=== PATIENT | male | born 1940 | race Caucasian/White ===

== ENCOUNTER → 2019-04-12 09:04 | Outpatient (CLI) | payer MEDICARE, SELFPAY ==
[2019-04-12 10:57] LABS: BUN Creatinine Ratio 18.2 (6-22); Blood Urea Nitrogen 20 mg/dL (9-20); Calcium 9.3 mg/dL (8.4-10.2); Carbon Dioxide 27 mmol/L (22-32); Chloride 105 mmol/L (98-107); Cholesterol 142 mg/dL (140-199); Estimated Glomerular Filt Rate > 60.0 mL/min (>60); Glucose 106 mg/dL (80-110); HDL Cholesterol 30 mg/dL (40-60); HEMOLYSIS < 15 (0-50); LDL Cholesterol Calculated 74 mg/dL (<100); Potassium 4.3 mmol/L (3.4-5.1); Sodium 142 mmol/L (137-145); Triglycerides 192 mg/dL (35-150)
[2019-04-12 11:28] LABS: Prostate Specific Antigen 6.54 ng/mL (0.10-4.00)
== END ==
PROVIDERS: PCP Internal Medicine; Visit Provider Internal Medicine
DX: E78.00 Pure hypercholesterolemia, unspecified (principal); N40.0 Benign prostatic hyperplasia without lower urinary tract symptoms
CPT/HCPCS: 36415; 80048; 80061; 84153

== ENCOUNTER 2019-12-09 09:27 | Emergency (ER) | payer MEDICARE, SELFPAY ==
[2019-12-09 09:30] VITALS: BP 171/72; PULSE 50; RESP 18; TEMP 36.9; O2SAT 95
[2019-12-09] MEDS: KETOROLAC 60 MG/2 ML VIAL 15 MG IM (09:50)
[2019-12-09] MEDS: CYCLOBENZAPRINE 10 MG TABLET PO (09:50)
[2019-12-09] MEDS: ACETAMINOPHEN 325 MG TABLET 650 MG PO (09:50)
[2019-12-09 10:21] VITALS: BP 121/62; PULSE 64; RESP 16; O2SAT 97
--- NOTE | 2019-12-09 10:48 | DI.CT.S_ITS ---
PROCEDURE: CT LUMBAR SPINE WO CON INDICATIONS: severe paralyzing pain in low back after lifting TECHNIQUE: Noncontrast 3 mm thick sections acquired from the T12 level to the sacrum. Sagittal and coronal reformats were constructed. For radiation dose reduction, the following was used: automated exposure control. COMPARISON: [facility], L-SPINE 2-3 VIEWS, 03/25/2016, 10:31. FINDINGS: Image quality: Excellent. Bones: There is normal bony alignment. No acute vertebral body compression fractures. No suspicious lytic or blastic bony lesions. Spine degenerative disc disease and facet arthropathy.Central spinal caliber is of normal overall caliber. Severe right L5-S1 neural foraminal narrowing with slight compression of the exiting right L5 nerve root. No pars defects. Soft tissues: No retroperitoneal masses or hematomas. Visualized aorta is normal in caliber. IMPRESSION: 1. No fracture. No acute osseous lesion. If symptoms and/or clinical suspicion for pathology persists, evaluation with MRI may be helpful for further assessment. 2. Multilevel degenerative disc disease. 3. Multilevel facet arthropathy. 4. Severe right L5-S1 neural foraminal narrowing with slight compression of the exiting right L5 nerve root. Dictated by: Marianne Millan MD, PhD on 12/09/2019 at 10:25 Approved by: Marianne Millan MD, PhD on 12/09/2019 at 10:28
--- NOTE | 2019-12-09 11:39 | ED.BACK ---
HPI - Back Pain/Injury General Chief Complaint: Back Pain/Injury Stated Complaint: lower back pain Time Seen by Provider: 12/09/19 10:37 Source: patient and family Limitations: no limitations History of Present Illness HPI Narrative: CC: Low back pain HPI: The patient is a 79-year-old male comes into the emergency department complaining of low back pain. He states that the pain at times is 8 to 9/10 and feels paralyzing as if he is going to collapse. This type of pain is fleeting and very short-lived. It all started Friday and Friday when he was lifting pieces of concrete. Five days ago. He has had some minimal relief from heat in ibuprofen. The pain is sharp when it occurs. It occurs with bending over and twisting. He has had no fall or other injury. 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 He denies any shooting pain down his legs any numbness or tingling or loss of sensation other than his normal idiopathic peripheral neuropathy. He has had no loss of sensation over his scrotum and perineum. There has been no incontinence of urine or stool and no obstruction. The patient denies a history of diabetes mellitus or COPD. He does not smoke cigarettes but drinks alcohol periodically. He denies any headache any recent fever chills or sweats. He has had no cough chest pain or difficulty in breathing. He has had no dizziness or lightheadedness. There has been no abdominal pain nausea vomiting diarrhea change in bowel habits or any urinary symptoms. Related Data Home Medications Medication Instructions Recorded Confirmed doxazosin 8 mg tablet 8 mg PO DAILY 03/06/18 12/09/19 omeprazole 20 mg capsule,delayed 20 mg PO DAILY 03/06/18 12/09/19 release lisinopril 5 mg PO DAILY 12/09/19 12/09/19 simvastatin 10 mg PO DAILY 12/09/19 Previous Rx's Medication Instructions Recorded cyclobenzaprine 10 mg PO TID PRN #15 tab 12/09/19 naproxen [Naprosyn] 500 mg PO BID PRN #20 tab 12/09/19 tramadol [Ultram] 50 mg PO Q6H PRN #12 tab 12/09/19 Allergies Allergy/AdvReac Type Severity Reaction Status Date / Time Sulfa (Sulfonamide Allergy Intermediate Rash Verified 12/09/19 09:37 Antibiotics) Review of Systems Review of Systems Narrative: The patient's review of systems were all negative except for those mentioned in the history of present illness. Patient History Social History Smoking Status: Never smoker Smoking Status: Never smoker alcohol intake frequency: 0-2 drinks per day Substance Use Type: does not use Exam Narrative Exam Narrative: PHYSICAL EXAM: CONSTITUTIONAL: Awake, Alert, Oriented, Coherent, Cooperative in NAD but in mild to moderate discomfort.. Does not appear toxic or ill. The patient is preferably standing leaning up against the counter. HEAD: AT/NC EENT: PERRL, FROM of eyes, no discharge, NECK: Supple, no obvious JVD, Trachea is midline without stridor, SPINE: No gross deformity, no palpable tenderness of the cervical, thoracic, spine. There is mild diffuse tenderness over the lumbar spine and bilateral paraspinous muscles. There is mild increased tone more on the right. No CVA tenderness. THORAX: No deformity, retractions, chest wall tenderness, LUNGS: Clear with symmetrical breath sounds without respiratory distress HEART: Normal heart tones, regular rhythm and rate without murmur. ABDOMEN: Soft, non-tender, normal bowel sounds without guarding, rebound, rigidity or palpable mass . EXTREMITIES: No edema, cyanosis, deformity or tenderness. SKIN: No rash, bruising, petechiae or purpura. NEURO: Awake, alert, oriented, conversive, cranial nerves II-XII are symmetrical and normal, moves all 4 extremities and is ambulatory. Reflexes are 1 to 2+ and symmetrical. Sensation is symmetrical. Initial Vital Signs Initial Vital Signs: Vital Signs Temperature 98.4 F 12/09/19 09:30 Pulse Rate 50 L 12/09/19 09:30 Respiratory Rate 18 12/09/19 09:30 Blood Pressure 171/72 H 12/09/19 09:30 Pulse Oximetry 95 12/09/19 09:30 Course Course Course Narrative: [address] scan of the lumbar spine reveals: 1. No fracture. No acute osseous lesion. If symptoms and/or clinical suspicion for pathology persist order an MRI 2. Multilevel degenerative disc disease 3. Multilevel facet arthropathy 4. Severe right L5-S1 neural foraminal narrowing with slight compression of the exiting right L5 nerve root. This is the official reading from Radiology. The patient will be discharged home and advised to follow-up with his primary care physician. If symptoms persist he will be referred to physical therapy. Orders Ordered: Discontinued Medications Acetaminophen (Tylenol) 650 mg PO NOW ONE Stop: 12/09/19 09:42 Last Admin: 12/09/19 09:50 Dose: 650 mg Documented by: DAMI Cyclobenzaprine HCl (Flexeril) 10 mg PO NOW ONE Stop: 12/09/19 09:42 Last Admin: 12/09/19 09:50 Dose: 10 mg Documented by: DAMI Ketorolac Tromethamine (Toradol) 15 mg IM NOW ONE Stop: 12/09/19 09:42 Last Admin: 12/09/19 09:50 Dose: 15 mg Documented by: DAMI Vital Signs Vital signs: Vital Signs - 8 hr 12/09/19 09:30 12/09/19 10:21 12/09/19 12:12 Temperature 98.4 F Pulse Rate 50 L 64 70 Respiratory Rate 18 16 16 Blood Pressure 171/72 H 124/70 Blood Pressure [Left Arm] 121/62 Pulse Oximetry 95 97 97 Discharge Plan Departure Patient Disposition: Home Clinical Impression: Facet arthritis, degenerative, lumbar spine Acute low back pain Qualifiers: Back pain laterality: midline Sciatica presence: without sciatica Qualified Code(s): M54.5 - Low back pain Strain of lumbar region Qualifiers: Encounter type: initial encounter Qualified Code(s): S39.012A - Strain of muscle, fascia and tendon of lower back, initial encounter Discharge Date/Time: 12/09/19 12:13 Instructions: DI for Low Back Pain, DI for Muscle Strain, DI for Back Spasm, DI for Back Strain or Sprain Activity Restrictions/Additional Instructions: Follow-up with your primary care physician and be re-evaluated in 48 hours. Take the medications as directed. Assume positions of comfort. You may need to be seen in follow-up by physical therapy. Prescriptions: New tramadol [Ultram] 50 mg tablet 50 mg PO Q6H PRN (Reason: pain) Qty: 12 RF: 0 naproxen [Naprosyn] 500 mg tablet 500 mg PO BID PRN (Reason: pain) Qty: 20 RF: 0 cyclobenzaprine 10 mg tablet 10 mg PO TID PRN (Reason: muscle spasm) Qty: 15 RF: 0 No Action omeprazole 20 mg capsule,delayed release(DR/EC) 20 mg PO DAILY RF: 0 doxazosin 8 mg tablet 8 mg PO DAILY RF: 0 simvastatin 20 mg tablet 10 mg PO DAILY RF: 0 lisinopril 10 mg tablet 5 mg PO DAILY RF: 0 Referrals: Dutch Scott MD [Primary Care Provider] -
[2019-12-09 12:12] VITALS: BP 124/70; PULSE 70; RESP 16; O2SAT 97
== END 2019-12-09 12:13 | disposition home or self-care (01) ==
PROVIDERS: Emergency Provider Emergency Medicine; PCP Internal Medicine
DX: M47.816 Spondylosis without myelopathy or radiculopathy, lumbar region (principal); S39.012A Strain of muscle, fascia and tendon of lower back, initial encounter
CPT/HCPCS: 72131; 96372; 99284; J1885

== ENCOUNTER → 2020-06-28 18:36 | Outpatient (ROUT) | payer MEDICARE, SELFPAY ==
[2020-06-28 19:10] LABS: Aspartate Aminotransferase 31 IU/L (17-59); BUN Creatinine Ratio 18.4 (6-22); Blood Urea Nitrogen 19 mg/dL (9-20); Calcium 9.1 mg/dL (8.4-10.2); Carbon Dioxide 27 mmol/L (22-32); Chloride 106 mmol/L (98-107); Cholesterol 130 mg/dL (140-199); Estimated Glomerular Filt Rate > 60.0 mL/min (>60); Glucose 98 mg/dL (80-110); HDL Cholesterol 31 mg/dL (40-60); HEMOLYSIS < 15 (0-50); LDL Cholesterol Calculated 60 mg/dL (<100); Potassium 4.4 mmol/L (3.4-5.1); Sodium 140 mmol/L (137-145); Triglycerides 193 mg/dL (35-150)
[2020-06-29 16:10] LABS: Prostate Specific Antigen 6.61 ng/mL (0.10-4.00)
== END ==
PROVIDERS: PCP Internal Medicine; Visit Provider Internal Medicine
DX: E78.2 Mixed hyperlipidemia (principal); N40.0 Benign prostatic hyperplasia without lower urinary tract symptoms; I10 Essential (primary) hypertension
CPT/HCPCS: 80048; 80061; 84153; 84450

== ENCOUNTER → 2020-12-20 11:21 | Outpatient (CLI) | payer MEDICARE, SELFPAY ==
[2020-12-20 11:57] LABS: Blood Urea Nitrogen 15 mg/dL (9-20); Calcium 9.3 mg/dL (8.4-10.2); Carbon Dioxide 25 mmol/L (22-32); Chloride 103 mmol/L (98-107); Estimated Glomerular Filt Rate > 60.0 mL/min (>60); Glucose 123 mg/dL (80-110); HEMOLYSIS < 15 (0-50); Potassium 3.9 mmol/L (3.4-5.1); Sodium 137 mmol/L (137-145)
--- NOTE | 2020-12-20 12:20 | DI.CT.S_ITS ---
PROCEDURE: CT PELVIS W CON INDICATIONS: Prostate pain TECHNIQUE: After the administration of intravenous contrast, 5 mm thick sections acquired from the iliac crests to the symphysis. 5 mm coronal and sagittal reformats were acquired. For radiation dose reduction, the following was used: automated exposure control, adjustment of mA and/or kV according to patient size. COMPARISON: CT, KIDNEY/ URETER/BLADDER, 04/18/2013, 19:24. [facility], CT, CT LUMBAR SPINE WO CON, 12/09/2019, 11:02. FINDINGS: Image quality: Excellent. Peritoneum and bowel: Bowel loops demonstrate normal wall thickness and caliber. No significant diverticulosis. There is a small amount of free fluid in the pelvis. (Abnormal fluid was seen on the CT from 2017). Genitourinary: No hydroureter. Bladder wall thickness is normal. No bladder calculi. Prostatomegaly. Prostate gland measures approximately 6.2 x 6.1 x 5.7 cm, estimated volume of 112 cc. Nodes and vessels: -Right external iliac node measuring 1 cm short axis diameter, (11/22), remotely 0.8 cm in 2012. -Preaortic node measuring at 0.7 cm, (2), remotely 0.5 cm. -Left external iliac node measuring 1.3 cm, (2/), remotely 0.8 cm. No infrarenal abdominal aortic aneurysm. Iliac vessels demonstrate normal size and enhancement. Mild calcified atherosclerotic plaque. Bones: No suspicious bony lesions. Miscellaneous: Bilateral fat containing inguinal hernias, which appears similar to 2013. IMPRESSION: 1. Small volume of abnormal free fluid in the pelvis. (Note: Small volume of free fluid was seen on the CT from 2012). Etiology is uncertain. No significant diverticulosis. 2. Mildly enlarged left external iliac lymph node. Prominent right external iliac node. These nodes are indeterminate. -Recommend surveillance with CT. 3. Marked prostatomegaly. 4. Bilateral fat containing inguinal hernias. Dictated by: Tato Mayberry M.D. on 12/20/2020 at 13:01 Approved by: Tato Mayberry M.D. on 12/20/2020 at 13:17
== END ==
PROVIDERS: PCP Internal Medicine; Referring Provider Specialist; Visit Provider Specialist
DX: N42.81 Prostatodynia syndrome (principal); R94.4 Abnormal results of kidney function studies; R59.0 Localized enlarged lymph nodes; N40.0 Benign prostatic hyperplasia without lower urinary tract symptoms; K40.20 Bilateral inguinal hernia, without obstruction or gangrene, not specified as recurrent; R33.9 Retention of urine, unspecified
CPT/HCPCS: 36415; 51798; 72193; 80048; 81002

== ENCOUNTER → 2021-02-01 09:05 | Outpatient (CLI) | payer MEDICARE, SELFPAY ==
[2021-02-01 11:39] LABS: COVID19 -Nasal RAPID Negative (Negative)
== END ==
PROVIDERS: PCP Internal Medicine; Referring Provider Specialist; Visit Provider Specialist
DX: Z20.822 Contact with and (suspected) exposure to COVID-19 (principal)
CPT/HCPCS: 87635; C9803

== ENCOUNTER 2021-02-02 09:43 | Day surgery (SDC) | payer MEDICARE, SELFPAY ==
[2021-02-02] MEDS: LACTATED RINGERS 1,000 ML 200 ML IV ×2 (10:04→12:40)
[2021-02-02 10:05] VITALS: BP 133/78; PULSE 68; RESP 16; TEMP 36.1; O2SAT 98; BMI 30.8
--- NOTE | 2021-02-02 11:38 | PM.HP.1 ---
History of Present Illness History of Present Illness Date Patient Seen: 02/02/21 Time Patient Seen: 11:38 Chief complaint: SCREENING COLONOSCOPY & DX EGD Narrative: The patient is a gentleman who was having black bowel movements toward the end of last year. He did not want to come in for evaluation due to COVID. He also has a family history of colon cancer in his sister. He thinks his last colonoscopy was over 10 years ago. The patient stopped having black bowel movements about a month ago. He does have some reflux disease has been taking omeprazole he does have a history of gastric ulcers in the past. Patient History Medical History BPH w urinary obs/LUTS Elevated PSA Family history of prostate cancer HTN (hypertension) Hyperlipidemia Surgical History H/O circumcision H/O vasectomy Hx of tonsillectomy Family & Social History Family History Father Cancer Mother CAD (coronary artery disease) Grandmother Diabetes mellitus Sister Cancer Social History: household members spouse Tobacco & Substance use: Smoking Status Never smoker alcohol intake never alcohol intake frequency a few times a week Substance Use Type does not use Meds Home Medications and Allergies Home Medications Medication Instructions Recorded Confirmed Type doxazosin 8 mg tablet 8 mg PO DAILY 03/06/18 02/02/21 History omeprazole 20 mg capsule,delayed 20 mg PO DAILY 03/06/18 02/02/21 History release lisinopril 5 mg PO DAILY 12/09/19 02/02/21 History simvastatin 10 mg PO DAILY 12/09/19 02/02/21 History methocarbamol 500 mg tablet 500 mg PO BEDTIME 08/09/20 02/02/21 History docusate sodium 250 mg capsule 250 mg PO DAILY PRN 08/15/20 02/02/21 History fluocinolone 0.01 % topical cream 1 applic TOPICAL BID 08/15/20 02/02/21 History ibuprofen 600 mg tablet 600 mg PO Q8H PRN 08/15/20 02/02/21 History krill oil 500 mg capsule 500 mg PO DAILY 08/15/20 02/02/21 History multivitamin 1 cap PO DAILY 08/15/20 02/02/21 History psyllium husk 0.4 gram capsule 0.4 g PO DAILY 08/15/20 02/02/21 History finasteride 5 mg tablet 5 mg PO DAILY #90 tab 11/30/20 Rx tramadol 50 mg tablet 50 mg PO Q6H PRN #30 tab 12/21/20 02/02/21 Rx Allergies Allergy/AdvReac Type Severity Reaction Status Date / Time Sulfa (Sulfonamide Allergy Intermediate Rash Verified 12/20/20 10:49 Antibiotics) bee venom protein (honey bee) Allergy Mild Lymph Verified 02/02/21 10:07 swelling trimethoprim Allergy Verified 12/20/20 10:49 Review of Systems Review of Systems Narrative: Treated for hypertension ROS: Yes All systems reviewed with the patient and are negative except as otherwise documented Exam Vital Signs (past 8 hours): - 02/02/21 10:05 Temperature 97.0 F L Pulse Rate 68 Respiratory Rate 16 Blood Pressure 133/78 Pulse Oximetry 98 Oxygen Delivery Method Room Air Narrative Exam Narrative: Pleasant cooperative patient no apparent distress. Lungs are clear to auscultation. No rales or rhonchi. Heart regular rate and rhythm no murmur gallop. Abdomen is soft nontender without mass. No obvious hernias. Patient is alert and oriented x3. Assessment & Plan Assessment & Plan narrative: The patient for a screening colonoscopy. I have discussed the procedure with them. Risks of bleeding, perforation which would necessitate major operation, failure to find remove all lesions, the potential tattoo were all discussed. All questions were answered. They wished to proceed.
--- NOTE | 2021-02-02 11:40 | PM.PREOP ---
Pre-operative Note COVID-19 COVID-19 status: Negative Result date/Date tested (Pos, Neg/Pending): 02/01/21 Interval Note History & Physical reviewed/Exam performed by Physician: Yes Changes to H&P: No ASA Class (for procedural sedation): II
[2021-02-02 12:27] VITALS: BP 132/69; PULSE 49; RESP 12; TEMP 37.2; O2SAT 96
[2021-02-02] MEDS: fentaNYL 250 MCG/5 ML INJ IV (12:27)
[2021-02-02] MEDS: MIDAZOLAM 5 MG/5 ML VIAL IV (12:27)
--- NOTE | 2021-02-02 12:30 | PM.OP.ENDO ---
Operative Date/Time/Diagnoses Date of procedure: 02/02/21 Time of procedure: 12:30 Pre-op diagnosis: History of melena. History of polyps. Sister with colon cancer. Post-op diagnosis: same Procedure & Clinicians Study performed: EGD. Colonoscopy. Same procedure as scheduled: Yes Indications: Determine cause of melena. Screening in a high risk group for colon cancer. Surgeon: Christ Erwin Procedure Notes SCOAP/Timeout: Performed Procedure in detail: The patient had topical anesthetic applied to oropharynx. She was placed in left lateral decubitus position and underwent IV sedation directed by the surgeon consisting of fentanyl and Versed. A bite block was inserted and the scope was advanced through it into the esophagus. The esophagus was unremarkable. GE junction was noted at 45 cm from the incisors. The stomach insufflated well. There were no lesions seen in the body, antrum or at the incisura. The pyloric channel was patent. The duodenum was unremarkable to the 4th part. The scope was brought back into the stomach and retroflexed. The proximal stomach normal in appearance. I saw no evidence of a hiatal hernia.. The scope was straightened and brought out through the esophagus again. No lesions were seen. The scope was removed and the patient tolerated the procedure well. The patient was repositioned and underwent additional IV sedation directed by the surgeon consisting of fentanyl and Versed. Digital exam was remarkable for a diffusely enlarged prostate without dominant mass. The scope was inserted and advanced through the rectum into the sigmoid, descending, transverse, and ascending colon. The patient had to be repositioned, stiffener inserted, and pressure applied in order to make our way into the cecum.. The cecum was reached identified by the ileocecal valve and the appendiceal opening. The scope was gradually brought out. No Polyps were found. I did not see any diverticulosis either. She The scope ultimately was retroflexed in the rectum. The appearance was normal. The scope was removed and the patient tolerated the procedure well.. Prep was good Scope withdrawal time: 7 minutes Sedation minutes: 37 Specimen(s): none sent Complications: none Post-procedure Recommendations: Colonscopy in 5 years (If in good health)
[2021-02-02] MEDS: LIDOCAINE 4% SOLN 50 ML 20 ML TOP (12:31)
[2021-02-02 12:32] VITALS: BP 129/67; PULSE 50; RESP 12; O2SAT 96
[2021-02-02 12:37] VITALS: BP 132/68; PULSE 55; RESP 10; O2SAT 95
[2021-02-02 12:42] VITALS: BP 128/65; PULSE 54; RESP 10; TEMP 36.5; O2SAT 96
[2021-02-02 12:50] VITALS: BP 152/77; PULSE 55; RESP 10; O2SAT 97
== END 2021-02-02 13:10 | disposition home or self-care (01) ==
LOC: ENDO 09:44
PROVIDERS: PCP Internal Medicine; Referring Provider Specialist; Visit Provider Specialist
PROC: 0DJ08ZZ Inspection of Upper Intestinal Tract, Via Natural or Artificial Opening Endoscopic (ICD-10-PCS; CPT 43235; principal; 2021-02-02 10:45)
PROC: 0DJD8ZZ Inspection of Lower Intestinal Tract, Via Natural or Artificial Opening Endoscopic (ICD-10-PCS; CPT 45378; 2021-02-02 10:45)
DX: K92.1 Melena (principal); Z80.42 Family history of malignant neoplasm of prostate; Z80.0 Family history of malignant neoplasm of digestive organs; N40.1 Benign prostatic hyperplasia with lower urinary tract symptoms; N13.9 Obstructive and reflux uropathy, unspecified; I10 Essential (primary) hypertension; E78.5 Hyperlipidemia, unspecified
CPT/HCPCS: 43235; 45378; 99152; 99153; J2250; J3010

== ENCOUNTER → 2021-05-29 15:01 | Outpatient (CLI) | payer MEDICARE, SELFPAY ==
[2021-05-29 16:20] LABS: Prostate Specific Antigen 4.36 ng/mL (0.10-4.00)
== END ==
PROVIDERS: PCP Internal Medicine; Referring Provider Specialist; Visit Provider Specialist
DX: N40.1 Benign prostatic hyperplasia with lower urinary tract symptoms (principal); N13.8 Other obstructive and reflux uropathy; Z80.42 Family history of malignant neoplasm of prostate; R97.20 Elevated prostate specific antigen [PSA]
CPT/HCPCS: 36415; 84153

== ENCOUNTER → 2022-02-27 09:12 | Outpatient (CLI) | payer MEDICARE, SELFPAY ==
[2022-02-27 11:48] LABS: Prostate Specific Antigen 2.62 ng/mL (0.10-4.00)
== END ==
PROVIDERS: PCP Internal Medicine; Referring Provider Specialist; Visit Provider Specialist
DX: R97.20 Elevated prostate specific antigen [PSA] (principal)
CPT/HCPCS: 36415; 84153

== ENCOUNTER → 2022-05-29 11:32 | Outpatient (CLI) | payer MEDICARE, SELFPAY ==
[2022-05-29 12:44] LABS: Hematocrit 42.2 % (41-53); Hemoglobin 14.5 g/dL (13.5-17.5); Mean Corpuscular HGB Conc 34.3 % (30-36); Mean Corpuscular Hemoglobin 31.3 PG (26-34); Mean Corpuscular Volume 91.2 fL (80-100); Platelet Count 272 X10^3/uL (150-400); Red Blood Cell Count 4.62 X10^6/uL (4.5-5.9); Red Cell Distribution Width 13.6 % (11.6-14.8); White Blood Cell Count 8.3 X10^3/uL (4.5-11.0)
[2022-05-29 13:37] LABS: Alanine Aminotransferase 30 IU/L (<50); Albumin 4.4 g/dL (3.5-5.0); Albumin Globulin Ratio 1.4 (1.0-2.8); Alkaline Phosphatase 59 U/L (38-126); Aspartate Aminotransferase 26 IU/L (17-59); BUN Creatinine Ratio 15.1 (6-22); Blood Urea Nitrogen 16 mg/dL (9-20); Calcium 9.3 mg/dL (8.4-10.2); Carbon Dioxide 28 mmol/L (22-32); Chloride 106 mmol/L (98-107); Cholesterol 126 mg/dL (140-199); Estimated Glomerular Filt Rate > 60 mL/min (>60); Globulin 3.1 g/dL (1.7-4.1); Glucose 108 mg/dL (80-110); HDL Cholesterol 32 mg/dL (40-60); HEMOLYSIS < 15 (0-50); LDL Cholesterol Calculated 62 mg/dL (<100); Potassium 4.4 mmol/L (3.4-5.1); Sodium 140 mmol/L (137-145); Total Protein 7.5 g/dL (6.3-8.2); Triglycerides 158 mg/dL (35-150)
[2022-05-29 14:15] LABS: TSH w/ Reflex to FT4 1.28 uIU/mL (0.47-4.68)
== END ==
PROVIDERS: PCP Internal Medicine; Referring Provider Internal Medicine; Visit Provider Internal Medicine
DX: E78.2 Mixed hyperlipidemia (principal); I10 Essential (primary) hypertension; K59.01 Slow transit constipation
CPT/HCPCS: 36415; 80053; 80061; 84443; 85027

== ENCOUNTER → 2022-08-30 08:36 | Outpatient (CLI) | payer MEDICARE, SELFPAY ==
[2022-08-30 11:18] LABS: Prostate Specific Antigen 2.83 ng/mL (0.10-4.00)
== END ==
PROVIDERS: PCP Internal Medicine; Referring Provider Specialist; Visit Provider Specialist
DX: N40.1 Benign prostatic hyperplasia with lower urinary tract symptoms (principal); N13.8 Other obstructive and reflux uropathy
CPT/HCPCS: 36415; 84153

== ENCOUNTER → 2022-11-22 09:36 | Outpatient (CLI) | payer MEDICARE, SELFPAY ==
[2022-11-22 10:30] LABS: Hematocrit 41.7 % (41-53); Hemoglobin 14.1 g/dL (13.5-17.5); Mean Corpuscular HGB Conc 33.7 % (30-36); Mean Corpuscular Hemoglobin 31.1 PG (26-34); Mean Corpuscular Volume 92.2 fL (80-100); Platelet Count 261 X10^3/uL (150-400); Red Blood Cell Count 4.53 X10^6/uL (4.5-5.9); Red Cell Distribution Width 13.2 % (11.6-14.8); White Blood Cell Count 10.3 X10^3/uL (4.5-11.0)
[2022-11-22 11:08] LABS: Alanine Aminotransferase 32 IU/L (<50); Albumin 4.5 g/dL (3.5-5.0); Albumin Globulin Ratio 1.4 (1.0-2.8); Alkaline Phosphatase 60 U/L (38-126); Aspartate Aminotransferase 26 IU/L (17-59); BUN Creatinine Ratio 18.3 (6-22); Bilirubin Total 1.1 mg/dL (0.2-1.3); Blood Urea Nitrogen 19 mg/dL (9-20); Calcium 9.2 mg/dL (8.4-10.2); Carbon Dioxide 26 mmol/L (22-32); Chloride 101 mmol/L (98-107); Cholesterol 126 mg/dL (140-199); Estimated Glomerular Filt Rate > 60 mL/min (>60); Globulin 3.2 g/dL (1.7-4.1); Glucose 95 mg/dL (80-110); HDL Cholesterol 30 mg/dL (40-60); HEMOLYSIS < 15 (0-50); LDL Cholesterol Calculated 57 mg/dL (<100); Potassium 4.5 mmol/L (3.4-5.1); Sodium 139 mmol/L (137-145); Total Protein 7.7 g/dL (6.3-8.2); Triglycerides 197 mg/dL (35-150)
== END ==
PROVIDERS: PCP Internal Medicine; Referring Provider Internal Medicine; Visit Provider Internal Medicine
DX: E78.2 Mixed hyperlipidemia (principal); I10 Essential (primary) hypertension; K59.01 Slow transit constipation
CPT/HCPCS: 36415; 80053; 80061; 85027

== ENCOUNTER 2023-01-08 09:42 | Emergency (ER) | payer MEDICARE, SELFPAY ==
[2023-01-08] VITALS (18 sets, daily range): BP systolic 99–143; BP diastolic 53–65; PULSE 37–87; RESP 16–21; TEMP 36.2; O2SAT 94–100; BMI 31.7
[2023-01-08 10:07] LABS: Add Manual Diff / Slide Review NO; Basophils Absolute Auto 100 /uL (0-100); Basophils Percent Auto 0.7 % (0-2); Eosinophils Absolute Auto 200 /uL (0-450); Eosinophils Percent Auto 2.8 % (2-4); Lymphocytes Absolute Auto 1600 /uL (1100-4500); Lymphocytes Percent Auto 19.4 % (25-40); Mean Corpuscular Hemoglobin 31.8 PG (26-34); Mean Corpuscular Volume 90.8 fL (80-100); Monocytes Absolute Auto 1200 /uL (0-900); Monocytes Percent Auto 14.6 % (3-14); Neutrophils Absolute Auto 5300 /uL (1500-7000); Neutrophils Percent Auto 62.5 % (50-75); Platelet Count 253 X10^3/uL (150-400); Red Cell Distribution Width 13.5 % (11.6-14.8); White Blood Cell Count 8.5 X10^3/uL (4.5-11.0)
[2023-01-08] MEDS: SODIUM CHLORIDE 0.9% 500 ML 1000 ML IV ×2 (10:07→11:47)
[2023-01-08 10:19] LABS: Alanine Aminotransferase 93 IU/L (<50); Albumin 4.2 g/dL (3.5-5.0); Albumin Globulin Ratio 1.2 (1.0-2.8); Alkaline Phosphatase 57 U/L (38-126); Aspartate Aminotransferase 88 IU/L (17-59); BUN Creatinine Ratio 16.9 (6-22); Blood Urea Nitrogen 20 mg/dL (9-20); Calcium 8.3 mg/dL (8.4-10.2); Carbon Dioxide 23 mmol/L (22-32); Chloride 103 mmol/L (98-107); Estimated Glomerular Filt Rate > 60 mL/min (>60); Globulin 3.4 g/dL (1.7-4.1); Glucose 109 mg/dL (80-110); HEMOLYSIS < 15 (0-50); Lipase 171 U/L (23-300); Magnesium 1.9 mg/dL (1.6-2.3); Potassium 3.7 mmol/L (3.4-5.1); Sodium 136 mmol/L (137-145); Total Protein 7.6 g/dL (6.3-8.2)
--- NOTE | 2023-01-08 10:44 | ED.NAVMDI ---
HPI - Nausea/Vomiting/Diarrhea General Chief complaint: Nausea/Vomiting/Diarrhea Stated complaint: sent by [facility] low BP/D/T-4/dehydrated Time Seen by Provider: 01/08/23 09:53 Source: patient Mode of arrival: Family Vehicle History of Present Illness HPI Narrative: 82-year-old male nonsmoker with history of hyperlipidemia and GERD presents with his at the request of the walk-in clinic for evaluation. The patient reports that he has been having frequent watery stools for the past 4 days or so and went to the walk-in clinic for evaluation, he states that they noted his blood pressure to be in the 80s at which point they sent him here. He denies any dizziness, weakness or lightheadedness. He has no runny nose, sore throat or cough. Denies chest pain or shortness of breath. He denies any nausea or vomiting. He denies urinary complaints such as dysuria, frequency or urgency. On arrival here his blood pressure was well over 100. He denies recent travel, use of antibiotics, exposure to other ill persons but does question whether not he ate some bad food. He states he had an oyster burger and then a few hours later his symptoms started. He denies any blood Related Data Home Medications Medication Instructions Recorded Confirmed omeprazole 20 mg capsule,delayed 20 mg PO DAILY 03/06/18 01/08/23 release ibuprofen 600 mg tablet 600 mg PO Q8H PRN Pain 08/15/20 01/08/23 krill oil 500 mg capsule 500 mg PO DAILY 08/15/20 01/08/23 multivitamin 1 cap PO DAILY 08/15/20 01/08/23 psyllium husk 0.4 gram capsule 0.4 g PO DAILY 08/15/20 01/08/23 (Daily Fiber) Previous Rx's Medication Instructions Recorded sildenafil 100 mg tablet 100 mg PO DAILY PRN sexual 04/16/22 activity #30 tabs simvastatin 20 mg tablet 10 mg PO DAILY #45 tabs 07/24/22 fluocinolone 0.01 % topical cream 1 applic topical BID #60 grams 08/12/22 doxazosin 8 mg tablet 8 mg PO DAILY #90 tabs 11/25/22 lisinopril 10 mg tablet 10 mg PO DAILY #90 tabs 11/25/22 tramadol 50 mg tablet 50 mg PO DAILY PRN pain #30 tabs 12/09/22 finasteride 5 mg tablet 5 mg PO DAILY #90 tabs 12/17/22 ondansetron 4 mg disintegrating 4 mg PO TID-QID PRN nausea and 01/08/23 tablet vomiting #10 tabs Allergies Allergy/AdvReac Type Severity Reaction Status Date / Time Sulfa (Sulfonamide Allergy Intermediate Rash Verified 01/08/23 09:55 Antibiotics) bee venom protein (honey bee) Allergy Mild Lymph Verified 01/08/23 09:55 swelling trimethoprim Allergy Verified 01/08/23 09:55 Review of Systems Review of Systems Narrative: GENERAL: Denies chills, fatigue, malaise, fever, sweats. HEENT: Denies sinus pain, ear pain, sore throat, difficulty swallowing, dizziness. RESPIRATORY: Denies dyspnea, cough, wheezing, hemoptysis, sputum. CARDIOVASCULAR: Denies chest pain, palpitations, orthopnea, edema, GASTROINTESTINAL: See HPI : Denies dysuria, frequency, incontinence, hematuria, urinary retention. MUSCULOSKELETAL: denies weakness, joint pain, or bony pain SKIN: Denies rash, skin lesions, or other NEUROLOGIC: Denies weakness, headache, numbness, change in speech, confusion, seizures, incoordination. PSYCHIATRIC: No concerning psychosocial issues. 12 point review of systems is negative except for those stated above Patient History Medical History (Updated 01/08/23 @ 14:41 by Jabari Bey DO) Allergic rhinitis BPH w urinary obs/LUTS Chicken pox (~1949) Do not resuscitate Elevated PSA (~1983) Erectile dysfunction Essential hypertension Family history of prostate cancer GERD (gastroesophageal reflux disease) (~1985) Hyperlipidemia Measles (~1948) Medicare annual wellness visit, initial Mixed hyperlipidemia Mumps (~1949) Peripheral neuropathy (~1991) Skin cancer Slow transit constipation Surgical History Anesthesia H/O circumcision H/O vasectomy History of colonoscopy (~2020) Hx of tonsillectomy (~1954) Family History Father Cancer Mother CAD (coronary artery disease) Grandmother Diabetes mellitus Sister Cancer Grandfather Diabetes mellitus Grandfather No problems noted. 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 household members: spouse occupational status: previously employed Smoking Status: Never smoker alcohol intake: never substance use type: does not use Smoking Status: Never smoker alcohol intake frequency: a few times a week Substance Use Type: does not use Exam Initial Vital Signs Initial Vital Signs: Vital Signs Pulse Rate 87 01/08/23 09:50 Pulse Oximetry 95 01/08/23 09:50 Course Orders Ordered: Discontinued Medications Sodium Chloride (Normal Saline 0.9%) 500 mls @ 1,000 mls/hr IV BOLUS ONE Stop: 01/08/23 10:22 Last Infusion: 01/08/23 10:40 Dose: 0 mls/hr Documented By: Admin: 01/08/23 10:07 Dose: 1,000 mls/hr Documented By: SHEREEN Sodium Chloride (Normal Saline 0.9%) 500 mls @ 1,000 mls/hr IV BOLUS ONE Stop: 01/08/23 12:12 Last Infusion: 01/08/23 12:20 Dose: 0 mls/hr Documented By: Admin: 01/08/23 11:47 Dose: 1,000 mls/hr Documented By: SHEREEN Vital Signs Vital signs: Vital Signs - 8 hr 01/08/23 09:56 01/08/23 09:50 01/08/23 09:51 Temperature 97.2 F L Pulse Rate 82 87 86 Respiratory Rate 18 Blood Pressure 116/58 L Pulse Oximetry 100 95 95 Oxygen Delivery Method Room Air 01/08/23 10:00 01/08/23 10:00 Temperature Pulse Rate 64 Respiratory Rate Blood Pressure 104/56 L Pulse Oximetry 95 Oxygen Delivery Method Room Air MDM - Nausea/Vomiting/Diarrhea Lab Data 01/08/23 10:00 01/08/23 10:00 Labs: Lab Results 01/08/23 01/08/23 Range/Units 10:00 10:00 WBC 8.5 (4.5-11.0) X10^3/uL RBC 4.40 L (4.5-5.9) X10^6/uL Hgb 14.0 (13.5-17.5) g/dL Hct 40.0 L (41-53) % MCV 90.8 (80-100) fL MCH 31.8 (26-34) PG MCHC 35.0 (30-36) % RDW 13.5 (11.6-14.8) % Plt Count 253 (150-400) X10^3/uL Neut % (Auto) 62.5 (50-75) % Lymph % (Auto) 19.4 L (25-40) % Davis % (Auto) 14.6 H (3-14) % Eos % (Auto) 2.8 (2-4) % Baso % (Auto) 0.7 (0-2) % Neut # (Auto) 5300 (5087-9817) /uL Lymph # (Auto) 1600 (7969-7267) /uL Davis # (Auto) 1200 H (0-900) /uL Eos # (Auto) 200 (0-450) /uL Baso # (Auto) 100 (0-100) /uL Sodium 136 L (137-145) mmol/L Potassium 3.7 (3.4-5.1) mmol/L Chloride 103 (98-107) mmol/L Carbon Dioxide 23 (22-32) mmol/L BUN 20 (9-20) mg/dL Creatinine 1.18 (0.66-1.25) mg/dL Estimated GFR > 60 (>60) mL/min BUN/Creatinine Ratio 16.9 (6-22) Glucose 109 (80-110) mg/dL Calcium 8.3 L (8.4-10.2) mg/dL Magnesium 1.9 (1.6-2.3) mg/dL Total Bilirubin 1.0 (0.2-1.3) mg/dL AST 88 H (17-59) IU/L ALT 93 H (<50) IU/L Alkaline Phosphatase 57 (38-126) U/L Total Protein 7.6 (6.3-8.2) g/dL Albumin 4.2 (3.5-5.0) g/dL Globulin 3.4 (1.7-4.1) g/dL Albumin/Globulin Ratio 1.2 (1.0-2.8) Lipase 171 (23-300) U/L Urine Dip Bedside Urine Glucose Negative Bedside Urine Bilirubin - Negative Bedside Urine Ketone - Negative Urine Specific Gifford 1.010 Bedside Urine Occult Blood - Negative Bedside Urine pH 6.0 Bedside Urine Protein - Negative Bedside Urine Urobilinogen - Negative Bedside Urine Nitrite - Negative Bedside Urine Leukocytes - Negative Esterase MDM Narrative Medical decision making narrative: [82] year old patient presents with diarrhea and low blood pressure Multiple etiologies for patient's symptoms considered including, but not limited to: Food poisoning, viral gastroenteritis, electrolyte abnormality versus other Prior Charts reviewed in our EMR Primary Historian: patient Labs reviewed and interpreted by myself: No significant abnormalities requiring intervention Patient's symptoms improved over duration of stay with above-stated therapies. Orthostatics are stable, he is able to ambulate in the department without symptoms. History and physical are reassuring and there is low chance of a high-risk source of his diarrhea, no travel, use of antibiotics, obviously bad food, he was unable to produce a sample here, no specific intervention indicated at this time. Findings and discharge diagnosis discussed with patient/family followed by verbalization of understanding Return precautions discussed with patient/family whom verbalize understanding of diagnosis and plan Discharge Plan Departure Patient Disposition: Home Clinical Impression: Diarrhea, Dehydration Instructions: Diarrhea, DI for Dehydration -- Adult Activity Restrictions/Additional Instructions: *You have been diagnosed with diarrhea and mild dehydration * As we discussed your history and physical exam as well as labs and imaging are very reassuring. There is no evidence of any severe diagnoses that would require a specific or immediate intervention. *What to do: *Please continue to take your regular medications as directed. [x ] New medication prescriptions sent to your pharmacy: [[facility] ] *Please follow up with your primary care provider in 2-3 days, call for an appointment. Let them know you were seen in the Emergency Department and that we ask that you be seen in follow up. We will electronically transmit a record of today's note if your PCP is in our system *Please consider a clear liquid diet for the next 24-48 hours and then slowly advance to regular as tolerated. Also, try to avoid alcohol, nicotine, caffeine, spicy, acidic or fatty foods as this may worsen your symptoms *If you do not have a primary care provider please contact the [facility] Resource line at [phone]. They will ask some questions about your medical history and help get you set up with a doctor in the community. *Return to Emergency Department if you should have any new, worsening or concerning symptoms, such as [fever greater than 101 F, shaking chills, worsening pain, persistent vomiting or other bothersome symptoms] Prescriptions: New ondansetron 4 mg tablet,disintegrating 4 mg PO TID-QID PRN (Reason: nausea and vomiting) Qty: 10 0RF No Action omeprazole 20 mg capsule,delayed release(DR/EC) 20 mg PO DAILY sildenafil 100 mg tablet 100 mg PO DAILY PRN (Reason: sexual activity) Qty: 30 2RF Rx Instructions: administer 30 minutes to 4 hours before activity simvastatin 20 mg tablet 10 mg PO DAILY Qty: 45 3RF Patient Comments: TK 09/30 T PO QD IN THE EVENING fluocinolone 0.01 % cream 1 applic topical BID Qty: 60 1RF Rx Instructions: 1 gram, apply sparingly doxazosin 8 mg tablet 8 mg PO DAILY Qty: 90 3RF lisinopril 10 mg tablet 10 mg PO DAILY Qty: 90 3RF Patient Comments: TK 09/30 T PO QD tramadol 50 mg tablet 50 mg PO DAILY PRN (Reason: pain) Qty: 30 2RF finasteride 5 mg tablet 5 mg PO DAILY Qty: 90 3RF psyllium husk [Daily Fiber] 0.4 gram capsule 0.4 g PO DAILY ibuprofen 600 mg tablet 600 mg PO Q8H PRN (Reason: Pain) krill oil 500 mg capsule 500 mg PO DAILY multivitamin Capsule 1 cap PO DAILY Referrals: Dutch Scott MD [Primary Care Provider] - Stand Alone Forms: Patient Portal/API
--- NOTE | 2023-01-08 14:41 | PC.NURSE ---
Pt ambulated around the department with a steady gait. Pt denies feeling light headed. aware.
== END 2023-01-08 14:49 | disposition home or self-care (01) ==
PROVIDERS: Emergency Provider Emergency Medicine; PCP Internal Medicine
DX: R19.7 Diarrhea, unspecified (principal); E86.0 Dehydration; I49.3 Ventricular premature depolarization
CPT/HCPCS: 36415; 80053; 81003; 83690; 83735; 85025; 93005; 96360; 96361; 99284

== ENCOUNTER → 2023-03-05 10:19 | Outpatient (CLI) | payer MEDICARE, SELFPAY | PROVIDERS: PCP Internal Medicine; Referring Provider Specialist; Visit Provider Specialist | DX: N40.1 Benign prostatic hyperplasia with lower urinary tract symptoms (principal); N13.8 Other obstructive and reflux uropathy | CPT/HCPCS: 36415; 84153 ==

== ENCOUNTER 2023-07-12 19:06 | Emergency (ER) | payer MEDICARE, SELFPAY ==
[2023-07-12 19:08] VITALS: BP 155/70; PULSE 65; RESP 20; TEMP 37.8; O2SAT 97; BMI 30.9
[2023-07-12] MEDS: IBUPROFEN 400 MG TABLET 800 MG PO (19:19)
[2023-07-12] MEDS: ACETAMINOPHEN 325 MG TABLET 975 MG PO (19:19)
[2023-07-12 19:53] VITALS: PULSE 57; O2SAT 96
[2023-07-12 19:54] VITALS: BP 146/67; PULSE 58; O2SAT 96
[2023-07-12 20:00] VITALS: BP 145/67; PULSE 60; O2SAT 96
--- NOTE | 2023-07-12 20:03 | ED_ITS ---
HPI - URI/Sore Throat <Fitz Benavides PA-C - Last Filed: 07/12/23 20:10> General Chief Complaint: Upper Respiratory Symptoms Stated Complaint: sore throat fever dizzy x3 days Time Seen by Provider: 07/12/23 19:53 Source: patient Mode of arrival: Ambulatory History of Present Illness HPI Narrative: This is an 83-year-old male presents to the emergency department complaining of a worsening cough with some throat irritation. He is had this for the last 3 days and states that he did test positive for COVID-19 3 days ago. Denies any chest pain, shortness breath, or any other concerning signs or symptoms. Cough is occasionally mucousy and productive. Related Data Home Medications Medication Instructions Recorded Confirmed omeprazole 20 mg capsule,delayed 20 mg PO DAILY 03/06/18 03/25/23 release ibuprofen 600 mg tablet 600 mg PO Q8H PRN Pain 08/15/20 03/25/23 krill oil 500 mg capsule 500 mg PO DAILY 08/15/20 03/25/23 multivitamin 1 cap PO DAILY 08/15/20 03/25/23 psyllium husk 0.4 gram capsule 0.4 g PO DAILY 08/15/20 03/25/23 (Daily Fiber) Previous Rx's Medication Instructions Recorded sildenafil 100 mg tablet 100 mg PO DAILY PRN sexual 04/16/22 activity #30 tabs lisinopril 10 mg tablet 10 mg PO DAILY #90 tabs 11/25/22 finasteride 5 mg tablet 5 mg PO DAILY #90 tabs 12/17/22 tramadol 50 mg tablet 50 mg PO DAILY PRN pain #40 tabs 03/10/23 simvastatin 20 mg tablet 10 mg (1/2 x 20 mg) PO DAILY #45 05/16/23 tabs doxazosin 8 mg tablet 8 mg PO DAILY #90 tabs 05/27/23 benzonatate 100 mg capsule 100 mg PO BID #30 caps 07/12/23 Allergies Allergy/AdvReac Type Severity Reaction Status Date / Time Sulfa (Sulfonamide Allergy Intermediate Rash Verified 07/11/23 12:39 Antibiotics) bee venom protein (honey bee) Allergy Mild Lymph Verified 03/25/23 10:57 swelling trimethoprim Allergy Verified 03/25/23 10:57 Review of Systems <Fitz Benavides PA-C - Last Filed: 07/12/23 20:10> Review of Systems Narrative: GENERAL: Denies chills, fatigue, malaise, fever, sweats. HEENT: Denies sinus pain, ear pain, sore throat, difficulty swallowing, dizziness. RESPIRATORY: Reports cough, denies wheezing, hemoptysis, sputum. CARDIOVASCULAR: Denies chest pain, palpitations, orthopnea, edema, GASTROINTESTINAL: Denies nausea, vomiting, abdominal pain, diarrhea, constipation, melena. : Denies dysuria, frequency, incontinence, hematuria, urinary retention. MUSCULOSKELETAL: denies weakness, joint pain, or bony pain SKIN: Denies rash, skin lesions, or other NEUROLOGIC: Denies weakness, headache, numbness, change in speech, confusion, seizures, incoordination. PSYCHIATRIC: No concerning psychosocial issues. 12 point review of systems is negative except for those stated above Patient History <Fitz Benavides PA-C - Last Filed: 07/12/23 20:10> Medical History Medicare annual wellness visit, initial Slow transit constipation Do not resuscitate Allergic rhinitis Erectile dysfunction Mixed hyperlipidemia Essential hypertension Measles (~1948) Chicken pox (~1949) Skin cancer Peripheral neuropathy (~1991) Mumps (~1949) GERD (gastroesophageal reflux disease) (~1985) BPH w urinary obs/LUTS Family history of prostate cancer Elevated PSA (~1983) Hyperlipidemia Surgical History Anesthesia History of colonoscopy (~2020) Hx of tonsillectomy (~1954) H/O vasectomy H/O circumcision Family History Father Cancer Mother CAD (coronary artery disease) Grandmother Diabetes mellitus Sister Cancer Grandfather Diabetes mellitus Grandfather No problems noted. 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 HEAD: Atraumatic. Normocephalic. EYES: Pupils equal round and reactive. Extraocular motions intact. No scleral icterus. No injection or drainage. ENT: Nose without bleeding, purulent drainage. Throat without erythema, tonsillar hypertrophy or exudate. Airway patent. NECK: Trachea midline. Non tender CARDIOVASCULAR: Regular rate and rhythm without murmurs, gallops, or rubs. RESPIRATORY: Clear to auscultation. Breath sounds equal bilaterally. No wheezes, rales, or rhonchi. GASTROINTESTINAL: Abdomen soft, non-tender, nondistended. EXTREMITIES: No edema or joint tenderness. BACK: Nontender without deformity or crepitance. No flank tenderness. NEURO: AOx3. SKIN: No rash or erythema of visible areas Initial Vital Signs Initial Vital Signs: Vital Signs Temperature 100.1 F H 07/12/23 19:08 Pulse Rate 65 07/12/23 19:08 Respiratory Rate 20 07/12/23 19:08 Blood Pressure 155/70 H 07/12/23 19:08 Pulse Oximetry 97 07/12/23 19:08 Oxygen Delivery Method Room Air 07/12/23 19:08 <Sam Pal DO - Last Filed: 07/12/23 20:27> Initial Vital Signs Initial Vital Signs: Vital Signs Temperature 100.1 F H 07/12/23 19:08 Pulse Rate 65 07/12/23 19:08 Respiratory Rate 20 07/12/23 19:08 Blood Pressure 155/70 H 07/12/23 19:08 Pulse Oximetry 97 07/12/23 19:08 Oxygen Delivery Method Room Air 07/12/23 19:08 Course <Fitz Benavides PA-C - Last Filed: 07/12/23 20:10> Orders Ordered: Discontinued Medications Acetaminophen (Acetaminophen 325 Mg Tablet) 975 mg PO NOW ONE Stop: 07/12/23 19:16 Last Admin: 07/12/23 19:19 Dose: 975 mg Documented By: SHABBIR Ibuprofen (Ibuprofen 400 Mg Tablet) 800 mg PO NOW ONE Stop: 07/12/23 19:16 Last Admin: 07/12/23 19:19 Dose: 800 mg Documented By: SHABBIR Vital Signs Vital signs: Vital Signs - 8 hr 07/12/23 19:08 07/12/23 19:53 07/12/23 19:54 Temperature 100.1 F H Pulse Rate 65 57 L 58 L Respiratory Rate 20 Blood Pressure 155/70 H Pulse Oximetry 97 96 96 Oxygen Delivery Method Room Air 07/12/23 19:54 07/12/23 20:00 07/12/23 20:00 Temperature Pulse Rate 60 Respiratory Rate Blood Pressure 146/67 H 145/67 H Pulse Oximetry 96 Oxygen Delivery Method Room Air 07/12/23 20:15 Temperature 99.5 F Pulse Rate Respiratory Rate Blood Pressure Pulse Oximetry Oxygen Delivery Method <Sam Pal DO - Last Filed: 07/12/23 20:27> Orders Ordered: Discontinued Medications Acetaminophen (Acetaminophen 325 Mg Tablet) 975 mg PO NOW ONE Stop: 07/12/23 19:16 Last Admin: 07/12/23 19:19 Dose: 975 mg Documented By: SHABBIR Ibuprofen (Ibuprofen 400 Mg Tablet) 800 mg PO NOW ONE Stop: 07/12/23 19:16 Last Admin: 07/12/23 19:19 Dose: 800 mg Documented By: SHABBIR Vital Signs Vital signs: Vital Signs - 8 hr 07/12/23 19:08 07/12/23 19:53 07/12/23 19:54 Temperature 100.1 F H Pulse Rate 65 57 L 58 L Respiratory Rate 20 Blood Pressure 155/70 H Pulse Oximetry 97 96 96 Oxygen Delivery Method Room Air 07/12/23 19:54 07/12/23 20:00 07/12/23 20:00 Temperature Pulse Rate 60 Respiratory Rate Blood Pressure 146/67 H 145/67 H Pulse Oximetry 96 Oxygen Delivery Method Room Air 07/12/23 20:15 Temperature 99.5 F Pulse Rate Respiratory Rate Blood Pressure Pulse Oximetry Oxygen Delivery Method MDM - URI/Sore Throat <Fitz Benavides PA-C - Last Filed: 07/12/23 20:10> MDM Narrative Medical decision making narrative: MDM * differential diagnosis includes but not limited to strep throat, bronchitis, COVID-19 * Prior records reviewed: Patient was here 6 months ago due to dehydration. * My lab interpretation: None obtained * My imgaing interpretation: None obtained * Clinical Decision Rules/Scores evaluated: None * Independent discussions with: None ED Course: This is a 83-year-old male presents to the emergency department due to a continued cough. Explained to the patient that his cough is be expected with the COVID-19 infection. Patient is not report any chest pain shortness breath concerning for pneumonia. Posterior pharynx was not erythematous and low concern for strep throat. We will prescribe Tessalon Perles and recommended symptomatic and recommended conservative management for the self-limiting COVID disease. Shared Decision Making: Discussed plan with patient who is comfortable with the plan. Social Considerations: None Disposition: Discharged to home Discharge Plan Departure Patient Disposition: Home Clinical Impression: COVID-19 Activity Restrictions/Additional Instructions: Thank you for coming to the [facility] Emergency Department today. The cough is to be expected with the COVID-19 infection. Please take the medications as this may help with the cough. The COVID-19 is viral and should improve over time. I sent the medications to [facility] in [place]. I hope you feel better soon. Please follow up with your primary care provider within a week if your symptoms continue. If you do not have a primary care provider please contact the [facility] Resource line at [phone]. They will ask some questions about your medical history and help you get set up with a provider in the community. Prescriptions: New benzonatate 100 mg capsule 100 mg PO BID Qty: 30 0RF No Action omeprazole 20 mg capsule,delayed release(DR/EC) 20 mg PO DAILY sildenafil 100 mg tablet 100 mg PO DAILY PRN (Reason: sexual activity) Qty: 30 2RF Rx Instructions: administer 30 minutes to 4 hours before activity lisinopril 10 mg tablet 10 mg PO DAILY Qty: 90 3RF Patient Comments: TK 1/2 T PO QD finasteride 5 mg tablet 5 mg PO DAILY Qty: 90 3RF simvastatin 20 mg tablet 10 mg PO DAILY Qty: 45 3RF Patient Comments: TK 1/2 T PO QD IN THE EVENING doxazosin 8 mg tablet 8 mg PO DAILY Qty: 90 3RF Rx Instructions: Patient is still on this medication. Please fill as directed. Thanks! tramadol 50 mg tablet 50 mg PO DAILY PRN (Reason: pain) Qty: 40 2RF psyllium husk [Daily Fiber] 0.4 gram capsule 0.4 g PO DAILY ibuprofen 600 mg tablet 600 mg PO Q8H PRN (Reason: Pain) krill oil 500 mg capsule 500 mg PO DAILY multivitamin Capsule 1 cap PO DAILY Referrals: Dutch Scott MD [Primary Care Provider] - Stand Alone Forms: Patient Portal/API ED Sign-out <Sam Pal DO - Last Filed: 07/12/23 20:27> Cosign ED Attending Cosignature Attestation: Dr Pal Co-Sign Statement: I was available for consultation during this patient's emergency department visit. This chart is signed by myself for administrative purposes only. I did not have direct contact with this patient during this visit. They were seen independently by the APC.
[2023-07-12 20:15] VITALS: TEMP 37.5
== END 2023-07-12 20:17 | disposition home or self-care (01) ==
PROVIDERS: Emergency Provider Physician Assistant Medical; PCP Internal Medicine
DX: U07.1 COVID-19 (principal)
CPT/HCPCS: 99283

== ENCOUNTER 2023-08-15 14:06 | Emergency (ER) | payer MEDICARE, SELFPAY ==
[2023-08-15 14:13] VITALS: BP 147/73; PULSE 81; RESP 16; TEMP 36.4; O2SAT 96; BMI 30.8
--- NOTE | 2023-08-15 14:17 | DI.RAD.S_ITS ---
PROCEDURE: XR ABDOMEN MIN 2V INDICATIONS: constipation hx abd pain TECHNIQUE: 2 views of the abdomen were acquired. COMPARISON: None. FINDINGS: Surgical changes and devices: None. Bowel: No pneumoperitoneum. The bowel gas pattern is normal. Soft tissues: No masses; visualized solid organ contours appear normal in size. No suspicious abdominal calcifications. Bones: No suspicious bony abnormalities. IMPRESSION: Non-obstructive bowel gas pattern. Dictated by: Coid Bryant M.D. on 08/15/2023 at 14:41 Approved by: Codi Bryant M.D. on 08/15/2023 at 14:41
--- NOTE | 2023-08-15 16:18 | ED.GENADULT ---
HPI - General Adult General Chief complaint: Abdominal Pain Stated complaint: bowel blockage Time Seen by Provider: 08/15/23 14:25 Source: patient Mode of arrival: Ambulatory History of Present Illness HPI narrative: Patient is a 83-year-old male. Normally would take MiraLax but has not been on it for the past 4 days. He was trying to see if maybe he could go without using the MiraLax. He states he is having symptoms that are consistent with constipation. He is not having any urinary symptoms. He states he feels like there is stool in his rectum that is ready to come out but is unable to push it out. He did try MiraLax this morning and also other laxatives and stool softeners. No nausea or vomiting. Does not have specific abdominal pain but more low back pain. Related Data Home Medications Medication Instructions Recorded Confirmed omeprazole 20 mg capsule,delayed 20 mg PO DAILY 03/06/18 03/25/23 release ibuprofen 600 mg tablet 600 mg PO Q8H PRN Pain 08/15/20 03/25/23 krill oil 500 mg capsule 500 mg PO DAILY 08/15/20 03/25/23 multivitamin 1 cap PO DAILY 08/15/20 03/25/23 psyllium husk 0.4 gram capsule 0.4 g PO DAILY 08/15/20 03/25/23 (Daily Fiber) Previous Rx's Medication Instructions Recorded sildenafil 100 mg tablet 100 mg PO DAILY PRN sexual 04/16/22 activity #30 tabs lisinopril 10 mg tablet 10 mg PO DAILY #90 tabs 11/25/22 finasteride 5 mg tablet 5 mg PO DAILY #90 tabs 12/17/22 tramadol 50 mg tablet 50 mg PO DAILY PRN pain #40 tabs 03/10/23 simvastatin 20 mg tablet 10 mg (1/2 x 20 mg) PO DAILY #45 05/16/23 tabs doxazosin 8 mg tablet 8 mg PO DAILY #90 tabs 05/27/23 benzonatate 100 mg capsule 100 mg PO BID #30 caps 07/12/23 Allergies Allergy/AdvReac Type Severity Reaction Status Date / Time Sulfa (Sulfonamide Allergy Intermediate Rash Verified 08/15/23 14:13 Antibiotics) bee venom protein (honey bee) Allergy Mild Lymph Verified 08/15/23 14:13 swelling trimethoprim Allergy Verified 08/15/23 14:13 Review of Systems Constitutional Constitutional: Reports system reviewed and no additional complaints, except as documented Gastrointestinal Gastrointestinal: Reports system reviewed and no additional complaints, except as documented Genitourinary Genitourinary: Reports system reviewed and no additional complaints, except as documented Musculoskeletal Musculoskeletal: Reports system reviewed and no additional complaints, except as documented Integumentary/Breasts Skin/Breast: Reports system reviewed and no additional complaints, except as documented Patient History Medical History Medicare annual wellness visit, initial Slow transit constipation Do not resuscitate Allergic rhinitis Erectile dysfunction Mixed hyperlipidemia Essential hypertension Measles (~1948) Chicken pox (~1949) Skin cancer Peripheral neuropathy (~1991) Mumps (~1949) GERD (gastroesophageal reflux disease) (~1985) BPH w urinary obs/LUTS Family history of prostate cancer Elevated PSA (~1983) Hyperlipidemia Surgical History Anesthesia History of colonoscopy (~2020) Hx of tonsillectomy (~1954) H/O vasectomy H/O circumcision Family History Father Cancer Mother CAD (coronary artery disease) Grandmother Diabetes mellitus Sister Cancer Grandfather Diabetes mellitus Grandfather No problems noted. 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 household members: spouse occupational status: previously employed Smoking Status: Never smoker alcohol intake: never substance use type: does not use Smoking Status: Never smoker alcohol intake frequency: a few times a week Substance Use Type: does not use Exam Initial Vital Signs Initial Vital Signs: Vital Signs Temperature 97.6 F 08/15/23 14:13 Pulse Rate 81 08/15/23 14:13 Respiratory Rate 16 08/15/23 14:13 Blood Pressure 147/73 H 08/15/23 14:13 Pulse Oximetry 96 08/15/23 14:13 Oxygen Delivery Method Room Air 08/15/23 14:13 Resp Effort & Inspection: normal respiratory effort GI Inspection: non-distended Palpation: firm, No guarding and No rigid Skin General: no rashes or lesions noted Course Orders Ordered: ED Orders 08/15/23 14:17 XR abdomen min 2V Stat Discontinued Medications Sodium Biphosphate/Sodium Phosphate (Fleets Enema) 1 each OK NOW ONE Stop: 08/15/23 16:27 Last Admin: 08/15/23 16:56 Dose: Not Given Documented By: PHOUNG Vital Signs Vital signs: Vital Signs - 8 hr 08/15/23 14:13 Temperature 97.6 F Pulse Rate 81 Respiratory Rate 16 Blood Pressure 147/73 H Pulse Oximetry 96 Oxygen Delivery Method Room Air Medical Decision Making Imaging Data Abdominal x-ray: Radiologist's Impression: PROCEDURE: XR ABDOMEN MIN 2V INDICATIONS: constipation hx abd pain TECHNIQUE: 2 views of the abdomen were acquired. COMPARISON: None. FINDINGS: Surgical changes and devices: None. Bowel: No pneumoperitoneum. The bowel gas pattern is normal. Soft tissues: No masses; visualized solid organ contours appear normal in size. No suspicious abdominal calcifications. Bones: No suspicious bony abnormalities. IMPRESSION: Non-obstructive bowel gas pattern MDM Narrative Medical decision making narrative: X-ray shows no definitive obstruction. I discussed options with the patient and we initially opted for an enema however the patient stated that he felt like he could go to the bathroom. He did go to the bathroom and had a large bowel movement. All of his symptoms resolved afterwards. I do feel that we can hold on further radiologic studies for now. He was given return precautions and follow-up instructions. He expressed understanding and agreement. Discharge Plan Departure Patient Disposition: Home Clinical Impression: Constipation Instructions: DI for Constipation Activity Restrictions/Additional Instructions: I do recommend that you continue on your bowel regimen to include the MiraLax. Continue the rest of your medications as directed. Return to the emergency department for new or worsening symptoms. Prescriptions: No Action omeprazole 20 mg capsule,delayed release(DR/EC) 20 mg PO DAILY sildenafil 100 mg tablet 100 mg PO DAILY PRN (Reason: sexual activity) Qty: 30 2RF Rx Instructions: administer 30 minutes to 4 hours before activity lisinopril 10 mg tablet 10 mg PO DAILY Qty: 90 3RF Patient Comments: TK 1/2 T PO QD finasteride 5 mg tablet 5 mg PO DAILY Qty: 90 3RF simvastatin 20 mg tablet 10 mg PO DAILY Qty: 45 3RF Patient Comments: TK 1/2 T PO QD IN THE EVENING doxazosin 8 mg tablet 8 mg PO DAILY Qty: 90 3RF Rx Instructions: Patient is still on this medication. Please fill as directed. Thanks! tramadol 50 mg tablet 50 mg PO DAILY PRN (Reason: pain) Qty: 40 2RF psyllium husk [Daily Fiber] 0.4 gram capsule 0.4 g PO DAILY ibuprofen 600 mg tablet 600 mg PO Q8H PRN (Reason: Pain) krill oil 500 mg capsule 500 mg PO DAILY multivitamin Capsule 1 cap PO DAILY benzonatate 100 mg capsule 100 mg PO BID Qty: 30 0RF Referrals: Dutch Scott MD [Primary Care Provider] - Stand Alone Forms: Patient Portal/API
--- NOTE | 2023-08-15 16:57 | PC.NURSE ---
Pt went to the bathroom prior to enema and pt states I just had a record setting BM and urinated too.
== END 2023-08-15 16:57 | disposition home or self-care (01) ==
PROVIDERS: Emergency Provider Emergency Medicine; PCP Internal Medicine
DX: K59.00 Constipation, unspecified (principal)
CPT/HCPCS: 51798; 74019; 99282; 99283

== ENCOUNTER → 2023-11-24 15:07 | Outpatient (CLI) | payer MEDICARE, SELFPAY ==
[2023-11-24 17:29] LABS: Aspartate Aminotransferase 27 IU/L (17-59); BUN Creatinine Ratio 14.4 (6-22); Blood Urea Nitrogen 16 mg/dL (9-20); Calcium 9.1 mg/dL (8.4-10.2); Carbon Dioxide 24 mmol/L (22-32); Cholesterol 121 mg/dL (140-199); Estimated Glomerular Filt Rate > 60 mL/min (>60); Glucose 91 mg/dL (80-110); HDL Cholesterol 25 mg/dL (40-60); HEMOLYSIS < 15 (0-50); LDL Cholesterol Calculated 57 mg/dL (<100); Potassium 4.2 mmol/L (3.4-5.1); Sodium 139 mmol/L (137-145); Triglycerides 193 mg/dL (35-150)
[2023-11-24 18:32] LABS: Prostate Specific Antigen 2.95 ng/mL (0.10-4.00)
[2023-11-24 19:10] LABS: Chloride 107 mmol/L (98-107)
== END ==
PROVIDERS: PCP Internal Medicine; Referring Provider Internal Medicine; Visit Provider Internal Medicine
DX: E78.2 Mixed hyperlipidemia (principal); N40.1 Benign prostatic hyperplasia with lower urinary tract symptoms; N13.8 Other obstructive and reflux uropathy
CPT/HCPCS: 80048; 80061; 84153; 84450

== ENCOUNTER → 2024-03-12 10:29 | Outpatient (CLI) | payer MEDICARE, SELFPAY ==
[2024-03-12 13:22] LABS: Prostate Specific Antigen 2.62 ng/mL (0.10-4.00)
== END ==
PROVIDERS: PCP Internal Medicine; Referring Provider Specialist; Visit Provider Specialist
DX: N40.1 Benign prostatic hyperplasia with lower urinary tract symptoms (principal); N13.8 Other obstructive and reflux uropathy; Z80.42 Family history of malignant neoplasm of prostate
CPT/HCPCS: 36415; 84153

== ENCOUNTER 2024-06-01 09:31 | Emergency (ER) | payer MEDICARE, SELFPAY ==
[2024-06-01] VITALS (15 sets, daily range): BP systolic 84–119; BP diastolic 50–57; PULSE 48–87; RESP 11–19; TEMP 36.2; O2SAT 94–98; BMI 30.7
--- NOTE | 2024-06-01 09:38 | DI.RAD.S_ITS ---
PROCEDURE: XR CHEST 1V INDICATIONS: chest pain TECHNIQUE: One view of the chest was acquired. COMPARISON: None. FINDINGS: Surgical changes and devices: None. Lungs and pleura: Minimal atelectasis versus scarring, extreme left lung base. No pleural effusions or pneumothorax. Mediastinum: Mediastinal contours appear normal. Heart size is normal. Bones and chest wall: No suspicious bony lesions. Overlying soft tissues appear unremarkable. IMPRESSION: Minimal atelectasis versus scarring, extreme left lung base. Dictated by: Jatin Polo M.D. on 06/01/2024 at 10:10 Approved by: Jatin Polo M.D. on 06/01/2024 at 10:11
--- NOTE | 2024-06-01 09:41 | EKG_ITS ---
[id number] [address] Test Date: 2024-06-01 Pat Name: Catarino Farfan Department: Room: Gender: Male Sticker On: ROMAINE : 1940 Requested By: Order Number: [id number] Reading MD: Rafiq Myers MD Measurements Intervals [place] Rate: 72 P: 67 SC: 218 QRS: -53 QRSD: 100 T: 52 QT: 392 QTc: 429 Interpretive Statements Sinus rhythm with 1st degree AV block with premature atrial complexes Left anterior fascicular block Electronically Signed On 06-01-2024 12:06:01 PDT by Rafiq Myers MD
--- NOTE | 2024-06-01 09:43 | ED_ITS ---
HPI - Dizziness General Chief Complaint: Dizziness Stated Complaint: dizziness, funny feeling in chest Time Seen by Provider: 06/01/24 09:33 Source: patient Mode of arrival: Ambulatory Limitations: no limitations History of Present Illness HPI Narrative: 83-year-old male presents with complaint of dizziness which she describes as lightheadedness occurs when he goes from a sitting to standing position more starts moving about. Patient describes as feeling little bit lightheaded. No vertigo. He states it is usually mild. Was prompted to come today because he went up and down the stairs and was more persistent lasted about 15 minutes patient got a little bit sweaty during that episode. States no syncope. No fevers, no chills, no cold cough or congestion. Denies headache, denies vision changes, had some chest discomfort a week ago but has not had any since. Denies any new shortness of breath. No nausea or vomiting. No diarrhea or constipation. No new urinary symptoms. No new swelling in extremities. No numbness tingling or weakness. Patient states he is on medication for hypertension, dyslipidemia and BPH. States no prior surgeries. Allergic to sulfa. No tobacco, was having alcohol a few times a week but stopped about a month ago. Denies any recreational drugs. Dr. Scott is his primary care physician. He is accompanied by his son. Related Data Home Medications Medication Instructions Recorded Confirmed omeprazole 20 mg capsule,delayed 20 mg PO DAILY 03/06/18 03/25/24 release ibuprofen 600 mg tablet 600 mg PO Q8H PRN Pain 08/15/20 03/25/24 krill oil 500 mg capsule 500 mg PO DAILY 08/15/20 03/25/24 multivitamin 1 cap PO DAILY 08/15/20 03/25/24 psyllium husk 0.4 gram capsule 0.4 g PO DAILY 08/15/20 03/25/24 (Daily Fiber) Previous Rx's Medication Instructions Recorded simvastatin 20 mg tablet 10 mg (1/2 x 20 mg) PO DAILY #45 05/16/23 tabs lisinopril 10 mg tablet 10 mg PO DAILY #90 tabs 11/12/23 mupirocin 2 % topical ointment 1 applic topical BID #22 grams 11/24/23 doxazosin 8 mg tablet 8 mg PO DAILY #90 tabs 05/03/24 finasteride 5 mg tablet 5 mg PO DAILY #90 tabs 05/03/24 sildenafil 100 mg tablet 100 mg PO DAILY PRN sexual 05/11/24 activity #30 tabs tramadol 50 mg tablet 50 mg PO DAILY PRN pain #40 tabs 05/11/24 nitrofurantoin 100 mg PO Q12H 7 days #14 caps 06/01/24 monohydrate/macrocrystals 100 mg capsule (Macrobid) Allergies Allergy/AdvReac Type Severity Reaction Status Date / Time Sulfa (Sulfonamide Allergy Intermediate Rash Verified 06/01/24 09:38 Antibiotics) bee venom protein (honey bee) Allergy Mild Lymph Verified 06/01/24 09:38 swelling trimethoprim Allergy Verified 06/01/24 09:38 Review of Systems Review of Systems ROS Unobtainable: All systems reviewed & are unremarkable except as noted in HPI and below Patient History Medical History Slow transit constipation Do not resuscitate Allergic rhinitis Erectile dysfunction Mixed hyperlipidemia Essential hypertension Measles (~1948) Chicken pox (~1949) Skin cancer Peripheral neuropathy (~1991) Mumps (~1949) GERD (gastroesophageal reflux disease) (~1985) BPH w urinary obs/LUTS Family history of prostate cancer Elevated PSA (~1983) Hyperlipidemia Surgical History Anesthesia History of colonoscopy (~2020) Hx of tonsillectomy (~1954) H/O vasectomy H/O circumcision Family History Father Cancer Mother CAD (coronary artery disease) Grandmother Diabetes mellitus Sister Cancer Grandfather Diabetes mellitus Grandfather No problems noted. 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 No diaphoresis. HEENT: Head normocephalic, atraumatic, EOMI, pupils reactive, face symmetric, moist mucous membranes NECK: Supple, full range of motion CARDIOVASCULAR: Regular rate and rhythm without murmurs, rubs or gallops. No JVD. No edema. RESPIRATORY: Breath sounds equal bilaterally, no wheezes rales or rhonchi. No tachypnea or accessory muscle use. Speaks in full sentences. ABDOMEN: Soft, nontender. Normoactive bowel sounds all 4 quadrants. No guarding or rebound, rigidity, no mass : No CVA tenderness EXTREMITIES: Normal range of motion, no clubbing or edema. Neurovascularly intact NEUROLOGICAL: Cranial nerves II through XII grossly intact. Moving all extremities. Normal gait. SKIN: Warm, dry, no petechiae, no rashes or lesions. Initial Vital Signs Initial Vital Signs: Vital Signs Temperature 97.2 F L 06/01/24 09:32 Pulse Rate 87 06/01/24 09:32 Respiratory Rate 17 06/01/24 09:32 Blood Pressure 119/57 L 06/01/24 09:32 Pulse Oximetry 97 06/01/24 09:32 Oxygen Delivery Method Room Air 06/01/24 09:32 Course Orders Ordered: ED Orders 06/01/24 09:38 XR chest 1V Stat 06/01/24 09:40 Complete Blood Count AUTO DIFF Stat Comprehensive Metabolic Panel Stat Lipase Stat Magnesium Stat NT-proBNP (BNP-Adult 18+) Stat PTT Partial Thromboplastin Lemuel Stat Prothrombin Time INR Stat Troponin & CK Cardiac Panel Stat 06/01/24 09:41 EKG-12 Lead Stat 06/01/24 09:54 Covid-19 + FLU A/B + RSV - PCR Stat 06/01/24 11:45 Ictotest Urine Stat Urine Culture Stat Urine Microscopic Stat Discontinued Medications Aspirin (Aspirin 81 Mg Chew Tab) 324 mg PO NOW ONE Stop: 06/01/24 09:39 Last Admin: 06/01/24 09:48 Dose: Not Given Documented By: PHUONG Sodium Chloride (Normal Saline 0.9%) 1,000 mls @ 1,000 mls/hr IV BOLUS ONE Stop: 06/01/24 11:22 Last Infusion: 06/01/24 11:35 Dose: Infused Documented By: Admin: 06/01/24 10:32 Dose: 1,000 mls/hr Documented By: PHUONG Vital Signs Vital signs: Vital Signs - 8 hr 06/01/24 10:17 06/01/24 10:17 06/01/24 10:18 Pulse Rate 84 83 Pulse Rate [Orthostatic Lying] Pulse Rate [Orthostatic Sitting] Pulse Rate [Orthostatic Standing] Respiratory Rate 13 18 Blood Pressure 84/51 L Blood Pressure [Orthostatic Lying] Blood Pressure [Orthostatic Sitting] Blood Pressure [Orthostatic Standing] Pulse Oximetry 95 94 06/01/24 10:18 06/01/24 10:19 06/01/24 10:30 Pulse Rate 70 Pulse Rate [Orthostatic Lying] 85 Pulse Rate [Orthostatic Sitting] 83 Pulse Rate [Orthostatic Standing] 75 Respiratory Rate 19 Blood Pressure 95/53 L Blood Pressure [Orthostatic Lying] 95/53 L Blood Pressure [Orthostatic Sitting] 84/51 L Blood Pressure [Orthostatic Standing] 104/51 L Pulse Oximetry 95 06/01/24 10:30 06/01/24 11:00 06/01/24 11:00 Pulse Rate 60 Pulse Rate [Orthostatic Lying] Pulse Rate [Orthostatic Sitting] Pulse Rate [Orthostatic Standing] Respiratory Rate 16 Blood Pressure 96/51 L 101/54 L Blood Pressure [Orthostatic Lying] Blood Pressure [Orthostatic Sitting] Blood Pressure [Orthostatic Standing] Pulse Oximetry 95 06/01/24 11:16 06/01/24 11:16 06/01/24 11:30 Pulse Rate 56 L 52 L Pulse Rate [Orthostatic Lying] Pulse Rate [Orthostatic Sitting] Pulse Rate [Orthostatic Standing] Respiratory Rate 14 17 Blood Pressure 104/55 L Blood Pressure [Orthostatic Lying] Blood Pressure [Orthostatic Sitting] Blood Pressure [Orthostatic Standing] Pulse Oximetry 96 96 06/01/24 11:30 06/01/24 11:59 06/01/24 11:59 Pulse Rate 50 L Pulse Rate [Orthostatic Lying] Pulse Rate [Orthostatic Sitting] Pulse Rate [Orthostatic Standing] Respiratory Rate 19 Blood Pressure 99/50 L 94/53 L Blood Pressure [Orthostatic Lying] Blood Pressure [Orthostatic Sitting] Blood Pressure [Orthostatic Standing] Pulse Oximetry 97 06/01/24 12:00 06/01/24 12:00 06/01/24 12:08 Pulse Rate 51 L 50 L Pulse Rate [Orthostatic Lying] Pulse Rate [Orthostatic Sitting] Pulse Rate [Orthostatic Standing] Respiratory Rate 14 14 Blood Pressure 98/57 L Blood Pressure [Orthostatic Lying] Blood Pressure [Orthostatic Sitting] Blood Pressure [Orthostatic Standing] Pulse Oximetry 95 98 06/01/24 12:08 06/01/24 12:30 06/01/24 12:30 Pulse Rate 48 L 48 L Pulse Rate [Orthostatic Lying] Pulse Rate [Orthostatic Sitting] Pulse Rate [Orthostatic Standing] Respiratory Rate 11 L Blood Pressure 112/55 L 109/53 L Blood Pressure [Orthostatic Lying] Blood Pressure [Orthostatic Sitting] Blood Pressure [Orthostatic Standing] Pulse Oximetry 96 06/01/24 13:00 06/01/24 13:00 Pulse Rate 48 L 50 L Pulse Rate [Orthostatic Lying] Pulse Rate [Orthostatic Sitting] Pulse Rate [Orthostatic Standing] Respiratory Rate 12 Blood Pressure 112/55 L Blood Pressure [Orthostatic Lying] Blood Pressure [Orthostatic Sitting] Blood Pressure [Orthostatic Standing] Pulse Oximetry 97 MDM - Dizziness Lab Data 06/01/24 09:40 06/01/24 09:40 Labs: Lab Results 06/01/24 06/01/24 06/01/24 Range/Units 09:40 09:54 11:45 WBC 9.1 (4.5-11.0) X10^3/uL RBC 4.21 L (4.5-5.9) X10^6/uL Hgb 13.6 (13.5-17.5) g/dL Hct 39.0 L (41-53) % MCV 92.6 (80-100) fL MCH 32.2 (26-34) PG MCHC 34.7 (30-36) % RDW 14.0 (11.6-14.8) % Plt Count 271 (150-400) X10^3/uL Neut % (Auto) 46.9 L (50-75) % Lymph % (Auto) 38.8 (25-40) % [place] % (Auto) 10.6 (3-14) % Eos % (Auto) 2.7 (2-4) % Baso % (Auto) 1.0 (0-2) % Neut # (Auto) 4300 (2122-0658) /uL Lymph # (Auto) 3500 (5592-3787) /uL [place] # (Auto) 1000 H (0-900) /uL Eos # (Auto) 200 (0-450) /uL Baso # (Auto) 100 (0-100) /uL PT 11.9 (9.4-12.5) SECONDS INR 1.0 (0.9-1.3) APTT 36 (25.1-36.5) SECONDS Sodium 138 (137-145) mmol/L Potassium 4.2 (3.4-5.1) mmol/L Chloride 108 H (98-107) mmol/L Carbon Dioxide 22 (22-32) mmol/L BUN 23 H (9-20) mg/dL Creatinine 1.30 H (0.66-1.25) mg/dL Estimated GFR 55 L (>60) mL/min BUN/Creatinine Ratio 17.7 (6-22) Glucose 108 (80-110) mg/dL Calcium 9.2 (8.4-10.2) mg/dL Magnesium 2.1 (1.6-2.3) mg/dL Total Bilirubin 0.8 (0.2-1.3) mg/dL AST 25 (17-59) IU/L ALT 27 (<50) IU/L Alkaline Phosphatase 48 (38-126) U/L Total Creatine Kinase 80 (55-170) U/L Troponin I < 0.012 (0.01-0.034) ng/mL NT-Pro-B Natriuret Pep 264 (<450) pg/mL Total Protein 7.4 (6.3-8.2) g/dL Albumin 4.3 (3.5-5.0) g/dL Globulin 3.1 (1.7-4.1) g/dL Albumin/Globulin Ratio 1.4 (1.0-2.8) Lipase 454 H (23-300) U/L Ur Bilirubin Confirm Negative (Negative) Urine RBC None seen (0-5/HPF) Urine WBC 1-5/hpf (0-5/HPF) Ur Squamous Epith Cells None seen (0-5/HPF) Urine Bacteria None seen (None) Ur Culture Indicated? Specimen cultured Vol Urine Centrifuged 10ml (spun) SARS-CoV-2 (PCR) Negative (Negative) Influenza A (RT-PCR) Flu a negative (NEGATIVE) Influenza B (RT-PCR) Flu b negative (NEGATIVE) RSV (PCR) Negative (Negative) Urine Dip Bedside Urine Glucose Negative Bedside Urine Bilirubin + 1 Bedside Urine Ketone - Negative Urine Specific [place] 1.025 Bedside Urine Occult Blood - Negative Bedside Urine pH 6.0 Bedside Urine Protein +/- 15 Bedside Urine Urobilinogen - Negative Bedside Urine Nitrite - Negative Bedside Urine Leukocytes +/- 15 Esterase Imaging Data Chest x-ray: Radiologist's Impression: Catarino Farfan?(Gene)??83??M??1940 ? Allergy/Adv: Sulfa (Sulfonamide Antibiotics), bee venom protein (honey bee), trimethoprim (More??) Close Chest X-Ray (Signed) Jatin Polo - 06/01/24 Abdomen X-Ray (Signed) Codi Bryant - 08/15/23 Telemetry Strips 02/02/[address] (Signed) ShawandaTato - 12/20/[address] (Signed) Marianne Millan - 12/09/19 Launch?[address] [address] XRay Report Signed Patient: Catarino Farfan MR#: [id number] : 1940 Acct:[id number] Age/Sex: 83 / M Date of Service: 06/01/24 Loc: ED Accession Number: [id number] Procedure: XR chest 1V Ordering Provider: Alisha Nova D.O. PROCEDURE: XR CHEST 1V INDICATIONS: chest pain TECHNIQUE: One view of the chest was acquired. COMPARISON: None. FINDINGS: Surgical changes and devices: None. Lungs and pleura: Minimal atelectasis versus scarring, extreme left lung base. No pleural effusions or pneumothorax. Mediastinum: Mediastinal contours appear normal. Heart size is normal. Bones and chest wall: No suspicious bony lesions. Overlying soft tissues appear unremarkable. IMPRESSION: Minimal atelectasis versus scarring, extreme left lung base. Dictated by: Jatin Polo M.D. on 06/01/2024 at 10:10 Approved by: Jatin Polo M.D. on 06/01/2024 at 10:11 ECG Data Attestation: I personally reviewed and interpreted this ECG as follows: Prior ECG tracings: available for review Interpretation: Sinus rhythm with first-degree AV block, with premature atrial complexes, left anterior fascicular block. Rate of 72 UT 218 QRS of 100 QTC of 429. Patient has prior from 01/08/2023 which appears similar. MDM Narrative Medical decision making narrative: 83-year-old male history of dizziness described as lightheadedness no syncope. Had a more prolonged episode today after going up and down the stairs. Patient notes that is seems to be orthostatic. He does note he had a funny feeling in his chest or discomfort about a week but has not had any since then. Patient ambulated in the department without issue. No acute neurologic changes. Overall patient's vitals are appropriate. Orthostatic were positive although patient was 105 systolic laying flat, did drop BP with upright position. Labs white count of 9.1, hemoglobin 13.6 platelets of 271. Coags are negative. Patient's creatinine is 1.30 patient typically runs 1 point in the last several months, BUN is also slightly elevated at 23. Patient's sodium is 138 potassium 4.2 chloride 108 with a CO2 of 22 glucose is 108 calcium is 9.2 Mag is 2.1 LFTs are negative although lipase is 454. Troponins less than 0.012 with a BNP of 264. Chest x-ray minimal atelectasis versus scarring extreme left lung base. EKG sinus rhythm with first-degree AV block. Urine point of care negative for nitrates, positive for leuks, positive for protein. 1+ bili no ketones. 1-5 white cells, sent for culture. COVID/flu/RSV swab is negative Patient was given a L of fluid as there maybe a component dehydration/ENRIKE. Patient has not had any recent medication changes. Patient re-evaluated. Patient ambulated without issue. Discussed with patient would treat for UTI. Patient has been hypotensive, feels fine ambulating. Blood pressure improved a little bit with the fluids. He has been bradycardic throughout his stay. Discussed with patient he has not on any beta blockers or AV donnie blocking agents. Patient felt comfortable with discharge discussed holding his doxazosin to see if this would improve blood pressure start oral antibiotic with strict return precautions. Discharge Plan Departure Patient Disposition: Home Clinical Impression: Dizziness, Acute UTI Instructions: DI for Dizziness-Nonvertigo Activity Restrictions/Additional Instructions: Please follow up for recheck. Your urine shows possible infection, please start antibiotics until completed. A prescription was sent to [facility] in [place]. Your heart rate and blood pressure has been on the lower side today. I would recommend holding your doxazosin for the next 1-2 days to see if your blood pressure improves. This medications often for prostate but does affect your blood pressure as well. Please return if you are feeling any worse, fevers, chest pain or shortness of breath, persistent lightheadedness, any passing out, new abdominal back or flank pain, new swelling of extremities or other new or concerning changes. Prescriptions: New nitrofurantoin monohyd/m-cryst [Macrobid] 100 mg capsule 100 mg PO Q12H 7 Days Qty: 14 0RF Rx Instructions: must administer with a meal/food No Action omeprazole 20 mg capsule,delayed release(DR/EC) 20 mg PO DAILY simvastatin 20 mg tablet 10 mg PO DAILY Qty: 45 3RF Patient Comments: TK 09/30 T PO QD IN THE EVENING lisinopril 10 mg tablet 10 mg PO DAILY Qty: 90 3RF Patient Comments: TK 09/30 T PO QD doxazosin 8 mg tablet 8 mg PO DAILY Qty: 90 3RF Rx Instructions: Patient is still on this medication. Please fill as directed. Thanks! finasteride 5 mg tablet 5 mg PO DAILY Qty: 90 3RF tramadol 50 mg tablet 50 mg PO DAILY PRN (Reason: pain) Qty: 40 2RF sildenafil 100 mg tablet 100 mg PO DAILY PRN (Reason: sexual activity) Qty: 30 2RF Rx Instructions: administer 30 minutes to 4 hours before activity mupirocin 2 % ointment 1 applic topical BID Qty: 22 1RF Rx Instructions: 1 gram each nostril twice daily for 1 week psyllium husk [Daily Fiber] 0.4 gram capsule 0.4 g PO DAILY ibuprofen 600 mg tablet 600 mg PO Q8H PRN (Reason: Pain) krill oil 500 mg capsule 500 mg PO DAILY multivitamin Capsule 1 cap PO DAILY Referrals: Dutch Soctt MD [Primary Care Provider] - Stand Alone Forms: Patient Portal/API
[2024-06-01 10:00] LABS: Add Manual Diff / Slide Review NO; Basophils Absolute Auto 100 /uL (0-100); Eosinophils Absolute Auto 200 /uL (0-450); Eosinophils Percent Auto 2.7 % (2-4); Hemoglobin 13.6 g/dL (13.5-17.5); Lymphocytes Absolute Auto 3500 /uL (1100-4500); Lymphocytes Percent Auto 38.8 % (25-40); Mean Corpuscular HGB Conc 34.7 % (30-36); Mean Corpuscular Hemoglobin 32.2 PG (26-34); Mean Corpuscular Volume 92.6 fL (80-100); Monocytes Absolute Auto 1000 /uL (0-900); Monocytes Percent Auto 10.6 % (3-14); Neutrophils Absolute Auto 4300 /uL (1500-7000); Neutrophils Percent Auto 46.9 % (50-75); Platelet Count 271 X10^3/uL (150-400); Red Blood Cell Count 4.21 X10^6/uL (4.5-5.9); White Blood Cell Count 9.1 X10^3/uL (4.5-11.0)
[2024-06-01 10:03] LABS: Prothrombin Time 11.9 SECONDS (9.4-12.5)
[2024-06-01 10:06] LABS: PTT Partial Thromboplastin Tim 36 SECONDS (25.1-36.5)
[2024-06-01 10:09] LABS: Alanine Aminotransferase 27 IU/L (<50); Albumin 4.3 g/dL (3.5-5.0); Albumin Globulin Ratio 1.4 (1.0-2.8); Alkaline Phosphatase 48 U/L (38-126); Aspartate Aminotransferase 25 IU/L (17-59); BUN Creatinine Ratio 17.7 (6-22); Bilirubin Total 0.8 mg/dL (0.2-1.3); Blood Urea Nitrogen 23 mg/dL (9-20); Calcium 9.2 mg/dL (8.4-10.2); Carbon Dioxide 22 mmol/L (22-32); Chloride 108 mmol/L (98-107); Creatine Kinase 80 U/L (55-170); Estimated Glomerular Filt Rate 55 mL/min (>60); Globulin 3.1 g/dL (1.7-4.1); Glucose 108 mg/dL (80-110); HEMOLYSIS < 15 (0-50); Lipase 454 U/L (23-300); Magnesium 2.1 mg/dL (1.6-2.3); Potassium 4.2 mmol/L (3.4-5.1); Sodium 138 mmol/L (137-145); Total Protein 7.4 g/dL (6.3-8.2)
[2024-06-01 10:20] LABS: NT-proBNP (BNP-Adult 18+) 264 pg/mL (<450); Troponin I < 0.012 ng/mL (0.01-0.034)
--- NOTE | 2024-06-01 10:20 | PC.NURSE ---
Pt felt lightheaded with position change from lying to sitting,not so much when he stood.
[2024-06-01] MEDS: SODIUM CHLORIDE 0.9% 1,000 ML 1000 ML IV (10:32)
[2024-06-01 10:37] LABS: Influenza A - CEPHEID Flu A NEGATIVE (NEGATIVE); Influenza B - CEPHEID Flu B NEGATIVE (NEGATIVE); Respiratory Syncytial Virus Negative (Negative)
[2024-06-01 10:40] LABS: COVID-19 CEPHEID 4-PLEX PCR Negative (Negative)
[2024-06-01 12:10] LABS: Ictotest Urine Negative (Negative)
[2024-06-01 12:11] LABS: Urine Volume 10mL (spun)
--- NOTE | 2024-06-01 12:11 | PC.NURSE ---
Pt bradied down to 48. Denies cp, sob, dizziness/lightheadedness. Ambulated to bathroom and states that he felt fine. Dr Nova notified of pt's HR.
[2024-06-01 12:13] LABS: Bacteria Urine None Seen; RBC Urine None Seen (0-5/HPF); WBC Urine 1-5/HPF (0-5/HPF)
[2024-06-01 12:14] LABS: Culture Indicated Urine Specimen Cultured; Squamous Epithelial Cell Urine None Seen (0-5/HPF)
== END 2024-06-01 13:09 | disposition home or self-care (01) ==
PROVIDERS: Emergency Provider Emergency Medicine; PCP Internal Medicine
DX: R42 Dizziness and giddiness (principal); N39.0 Urinary tract infection, site not specified; R07.9 Chest pain, unspecified; I44.0 Atrioventricular block, first degree; I44.7 Left bundle-branch block, unspecified; R79.89 Other specified abnormal findings of blood chemistry; Z79.899 Other long term (current) drug therapy; Z11.52 Encounter for screening for COVID-19
CPT/HCPCS: 0241U; 36415; 71045; 80053; 81003; 81015; 82550; 83690; 83735; 83880; 84484; 85025; 85610; 85730; 87086; 93005; 93010; 96360; 99284

== ENCOUNTER → 2024-11-26 09:01 | Outpatient (CLI) | payer MEDICARE, SELFPAY ==
[2024-11-26 10:41] LABS: HEMOLYSIS < 15 (0-50)
[2024-11-26 10:56] LABS: Aspartate Aminotransferase 26 IU/L (17-59); BUN Creatinine Ratio 15.7 (6-22); Blood Urea Nitrogen 19 mg/dL (9-20); Calcium 9.2 mg/dL (8.4-10.2); Carbon Dioxide 22 mmol/L (22-32); Chloride 107 mmol/L (98-107); Cholesterol 123 mg/dL (140-199); Estimated Glomerular Filt Rate 60 mL/min (>60); Glucose 96 mg/dL (80-110); HDL Cholesterol 31 mg/dL (40-60); LDL Cholesterol Calculated 60 mg/dL (<100); Potassium 4.6 mmol/L (3.4-5.1); Sodium 140 mmol/L (137-145); Triglycerides 158 mg/dL (35-150)
[2024-11-26 11:16] LABS: Prostate Specific Antigen 2.23 ng/mL (0.10-4.00)
== END ==
LOC: LAB 09:02
PROVIDERS: PCP Internal Medicine; Referring Provider Internal Medicine; Visit Provider Internal Medicine
DX: E78.2 Mixed hyperlipidemia (principal); N40.1 Benign prostatic hyperplasia with lower urinary tract symptoms; N13.8 Other obstructive and reflux uropathy; I10 Essential (primary) hypertension
CPT/HCPCS: 36415; 80048; 80061; 84153; 84450

== ENCOUNTER → 2025-06-14 16:37 | Outpatient (CLI) | payer MEDICARE, SELFPAY ==
[2025-06-14 18:58] LABS: Prostate Specific Antigen 2.23 ng/mL (0.10-4.00)
== END ==
PROVIDERS: PCP Internal Medicine; Referring Provider Urology; Visit Provider Urology
DX: R97.20 Elevated prostate specific antigen [PSA] (principal)
CPT/HCPCS: 36415; 84153

== ENCOUNTER 2025-06-19 11:48 | Emergency (ER) | payer MEDICARE, SELFPAY ==
[2025-06-19] VITALS (14 sets, daily range): BP systolic 123–167; BP diastolic 50–72; PULSE 46–73; RESP 14–24; TEMP 36.6; O2SAT 94–98; BMI 31.5
--- NOTE | 2025-06-19 12:11 | DI.RAD.S_ITS ---
PROCEDURE: XR CHEST 1V INDICATIONS: Chest Pain TECHNIQUE: One view of the chest was acquired. COMPARISON: [facility], CR, XR CHEST 1V, 06/01/2024, 9:50. FINDINGS: Surgical changes and devices: None. Lungs and pleura: Lungs are clear. No pleural effusions or pneumothorax. Mediastinum: Mediastinal contours appear normal. Heart size is normal. Bones and chest wall: No suspicious bony lesions. Overlying soft tissues appear unremarkable. IMPRESSION: No acute cardiopulmonary abnormality is seen. Approved by: Dov Pennington M.D. on 06/19/2025 at 12:22
--- NOTE | 2025-06-19 12:11 | DI.CT.S_ITS ---
PROCEDURE: CT HEAD/BRAIN WO CON INDICATIONS: dizziness TECHNIQUE: Noncontrast 4.5 mm thick angled axial sections acquired from the foramen magnum to the vertex, with coronal and sagittal reformats. For radiation dose reduction, the following was used: automated exposure control, adjustment of mA and/or kV according to patient size. COMPARISON: None. FINDINGS: Image quality: Diagnostic. CSF spaces: Basal cisterns are patent. No extra-axial fluid collections. Ventricles are normal in size and shape. Brain: No midline shift. No intracranial mass effect or hemorrhage. Mon[place]roso- white matter interface is normal. Skull and face: Calvarium and visualized facial bones are intact, without suspicious lesions. Sinuses: Visualized sinuses and mastoids are clear. IMPRESSION: No acute intracranial pathology. Approved by: Dov Pennington M.D. on 06/19/2025 at 12:44
--- NOTE | 2025-06-19 12:11 | DI.CT.S_ITS ---
PROCEDURE: CT ANGIO HEAD AND NECK INDICATIONS: dizziness/ neck twinge TECHNIQUE: After the administration of intravenous contrast, 1 mm thick sections acquired from the aortic arch through the [place] of [place]. MIP reformats of the arterial vasculature were utilized. For radiation dose reduction, the following was used: automated exposure control, adjustment of mA and/or kV according to patient size. COMPARISON: None. FINDINGS: Image quality: Diagnostic. Cerebral CT Angiogram: Internal carotid arteries: No acute findings. Intracranial ICA are patent with no significant stenosis. No occlusion. No aneurysm. Anterior cerebral arteries: Unremarkable. No significant stenosis. No occlusion. No aneurysm. Middle cerebral arteries: Unremarkable. No significant stenosis. No occlusion. No aneurysm. Posterior cerebral arteries: Unremarkable. No significant stenosis. No occlusion. No aneurysm. Basilar artery: Unremarkable. No significant stenosis. No occlusion. No aneurysm. Vertebral arteries: Unremarkable as visualized. Dural venous sinuses: Unremarkable given phase of enhancement. Other: Arterial phase appearance of the brain parenchyma is unremarkable. Neck CT Angiogram: Internal carotid arteries: Unremarkable. No significant stenosis. No dissection or occlusion. Common carotid arteries: Unremarkable. No significant stenosis. No dissection or occlusion. External carotid arteries: Unremarkable. No occlusion. Vertebral arteries: Unremarkable. No significant stenosis. No dissection or occlusion. Aortic Arch and Mediastinum: Partially visualized aortic arch unremarkable without evidence of aneurysm. Origins of the great vessels unremarkable. Other: Arterial phase soft tissues of the neck and chest are unremarkable. IMPRESSION: No significant intracranial arterial abnormality is seen. No significant abnormality is seen within the arteries of the neck. Any quantitative measurements of stenosis were performed using NASCET criteria. Approved by: Dov Pennington M.D. on 06/19/2025 at 13:00
[2025-06-19 12:24] LABS: Add Manual Diff / Slide Review NO; Hematocrit 38.7 % (41-53); Hemoglobin 13.5 g/dL (13.5-17.5); Lymphocytes Absolute Auto 2300 /uL (1100-4500); Mean Corpuscular HGB Conc 34.8 % (30-36); Mean Corpuscular Hemoglobin 31.8 PG (26-34); Mean Corpuscular Volume 91.4 fL (80-100); Platelet Count 263 X10^3/uL (150-400)
[2025-06-19 12:28] LABS: INR 1.0 (0.9-1.3); Prothrombin Time 11.7 SECONDS (9.4-12.5)
[2025-06-19 12:36] LABS: Alanine Aminotransferase 45 IU/L (<50); Albumin 4.5 g/dL (3.5-5.0); Albumin Globulin Ratio 1.3 (1.0-2.8); Alkaline Phosphatase 51 U/L (38-126); Blood Urea Nitrogen 16 mg/dL (9-20); Calcium 9.1 mg/dL (8.4-10.2); Carbon Dioxide 22 mmol/L (22-32); Chloride 106 mmol/L (98-107); Creatine Kinase 99 U/L (55-170); Estimated Glomerular Filt Rate > 60 mL/min (>60); Globulin 3.4 g/dL (1.7-4.1); Glucose 135 mg/dL (70-99); Lipase 124 U/L (23-300); Magnesium 2.0 mg/dL (1.6-2.3); PTT Partial Thromboplastin Tim 32 SECONDS (25.1-36.5); Potassium 4.0 mmol/L (3.4-5.1); Sodium 137 mmol/L (137-145); Total Protein 7.9 g/dL (6.3-8.2)
[2025-06-19 12:49] LABS: HEMOLYSIS 20 (0-50); NT-proBNP (BNP-Adult 18+) 229 pg/mL (<450); Troponin I < 0.012 ng/mL (0.01-0.034)
--- NOTE | 2025-06-19 13:03 | EKG_ITS ---
[place] [address] [address] [address] Test Date: 2025-06-19 Pat Name: Catarino Farfan Department: [facility] Room: Gender: Male Art Department Head: LIZ : 1940 Requested By: Order Number: [id number] Reading MD: Rafiq Myers MD Measurements Intervals [place] Rate: 51 P: 59 PA: 230 QRS: -36 QRSD: 92 T: 78 QT: 438 QTc: 403 Interpretive Statements Sinus bradycardia with 1st degree AV block Left axis deviation Electronically Signed On 06-20-2025 5:57:43 PDT by Rafiq Myers MD
--- NOTE | 2025-06-19 14:01 | EKG_ITS ---
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
[2025-06-19 14:52] LABS: Troponin I < 0.012 ng/mL (0.01-0.034)
--- NOTE | 2025-06-19 15:06 | ED.DIZZY ---
HPI - Dizziness General Chief Complaint: Dizziness Stated Complaint: [facility]; Dizziness, Twinge in Neck, R Eyelid Droop Time Seen by Provider: 06/19/25 14:17 Source: patient Mode of arrival: Ambulatory History of Present Illness HPI Narrative: 85-year-old male history of hypertension dyslipidemia, BPH, neuropathy who presents with complaint of brief episode of dizziness and a twinge in his neck. Patient states he woke up this morning he was lying down set up and was dizzy for about a minute and a half which resolved without any other intervention. He states he laid back down which seemed to help. Patient states it was like the room was spinning. He has not had similar symptoms in the past. Notes he has has a little bit of a twinge your discomfort in the right side of his neck for some time initially thought it was related to his pillows in bed but states nothing really seemed to make it better or worse. He states it is no longer present. Patient states he has been ambulating fine since. States he might have had a questionable lightheadedness but has not had any additional episodes. No chest pain, no shortness of breath, no headaches, no vision changes no difficulty with speech, no numbness or tingling no difficulty with weakness. No difficulty with the movement. He denies any facial droop. Patient states he takes gabapentin 3 times daily for neuropathy, lisinopril, doxazosin, simvastatin, finasteride for BPH. No prior surgeries. Reports an allergy to sulfa. No tobacco, used to have alcohol but did have 3 beers last night after a long drive and not eating or drinking anything most of the day. Denies any recreational drugs. Dr. Scott is his primary care physician. Related Data Home Medications ?Medication ?Instructions ?Recorded ?Confirmed omeprazole 20 mg capsule,delayed 20 mg PO DAILY 03/06/18 03/16/25 release multivitamin 1 cap PO DAILY 08/15/20 03/16/25 psyllium husk 0.4 gram capsule 0.4 g PO DAILY 08/15/20 03/16/25 (Daily Fiber) Previous Rx's ?Medication ?Instructions ?Recorded simvastatin 20 mg tablet 10 mg (1/2 x 20 mg) PO DAILY #45 08/17/24 tabs fluocinolone 0.01 % topical cream 1 applic topical BID #15 grams 11/03/24 lisinopril 10 mg tablet 10 mg PO DAILY #90 tabs 11/16/24 gabapentin 300 mg capsule 300 mg PO TID #270 caps 11/25/24 tramadol 50 mg tablet 50 mg PO DAILY PRN pain #40 tabs 04/12/25 doxazosin 8 mg tablet 8 mg PO DAILY #90 tabs 05/31/25 finasteride 5 mg tablet 5 mg PO DAILY #90 tabs 06/13/25 Allergies Allergy/AdvReac Type Severity Reaction Status Date / Time Sulfa (Sulfonamide Allergy Intermediate Rash Verified 06/19/25 13:40 Antibiotics) bee venom protein (honey bee) Allergy Mild Lymph Verified 06/19/25 13:40 swelling trimethoprim Allergy Verified 06/19/25 13:40 Review of Systems Review of Systems ROS Unobtainable: All systems reviewed & are unremarkable except as noted in HPI and below Patient History Medical History Lumbar degenerative disc disease Slow transit constipation Do not resuscitate Allergic rhinitis Erectile dysfunction Mixed hyperlipidemia Essential hypertension Measles (~1948) Chicken pox (~1949) Skin cancer Peripheral neuropathy (~1991) Mumps (~1949) GERD (gastroesophageal reflux disease) (~1985) BPH w urinary obs/LUTS Family history of prostate cancer Elevated PSA (~1983) Hyperlipidemia Surgical History Anesthesia History of colonoscopy (~2020) Hx of tonsillectomy (~1954) H/O vasectomy H/O circumcision Family History Father Cancer Mother CAD (coronary artery disease) Grandmother Diabetes mellitus Sister Cancer Grandfather Diabetes mellitus Grandfather No problems noted. 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 HEENT: Atraumatic, pupils are equal round reactive to light, extraocular movements are intact, nares are clear, TMs are clear with no fluid, there is no conjunctival pallor. Throat is clear without any exudates, erythema, tonsillar enlargement or uvular deviation, no facial droop HEART: Regular rate and rhythm without murmur, clicks, rubs. No carotid bruits, pulses are equal in upper and lower extremities LUNGS:Lungs clear to auscultation, no wheezes, rales, crackles, chest moves symmetrically ABD:bowel sounds normal, soft, non-tender, no guarding, rebound, rigidity, no masses noted, no hepatosplenomegaly :No CVA tenderness. MSCL: Non-tender, no muscle atrophy, muscles strength 5/5 upper and lower extremities, full range of motion, normal gait NEURO:CN 2-12 intact, sensation normal, reflexes 2/4 upper and lower extremities. finger nose finger test normal, heel adorno test normal. Initial Vital Signs Initial Vital Signs: Vital Signs Temperature 97.8 F 06/19/25 11:50 Pulse Rate 73 06/19/25 11:50 Respiratory Rate 16 06/19/25 11:50 Blood Pressure 123/62 06/19/25 11:50 Pulse Oximetry 96 06/19/25 11:50 Oxygen Delivery Method Room Air 06/19/25 11:50 Scores NIH Stroke Scale Level of Conciousness: Alert, keenly responsive Ask month/age: Answers both questions correctly. Open/close eyes, close hand: Performs both tasks correctly Best gaze horizontal: Normal Visual guadarrama: No visual loss Facial palsy: Normal symetrical movement Left arm drift: No drift for full 10 sec Right arm drift: No drift for full 10 sec Left leg drift: No drift for full 5 sec Right leg drift: No drift for full 5 sec Limb ataxia: Absent Sensory on face/arms/legs: Normal, no sensory loss Best language: No aphasia, normal Dysarthria: Normal Extinction or inattention: No abnormality Total NIH Stroke scale score: 0 Course Orders Ordered: ED Orders 06/19/25 12:04 Complete Blood Count AUTO DIFF Stat Comprehensive Metabolic Panel Stat Lipase Stat Magnesium Stat NT-proBNP (BNP-Adult 18+) Stat PTT Partial Thromboplastin Lemuel Stat Prothrombin Time INR Stat Troponin & CK Cardiac Panel Stat 06/19/25 12:11 CT angio head and neck Stat CT head/brain wo con Stat XR chest 1V Stat EKG-12 Lead Stat 06/19/25 14:01 EKG-12 Lead Stat 06/19/25 14:15 Troponin I Stat Discontinued Medications Aspirin (Aspirin 81 Mg Chew Tab) 324 mg PO NOW ONE Stop: 06/19/25 12:12 Last Admin: 06/19/25 15:21 Dose: Not Given Documented By: AI Vital Signs Vital signs: Vital Signs - 8 hr 06/19/25 11:50 06/19/25 11:54 06/19/25 11:54 Temperature 97.8 F Pulse Rate 73 73 Respiratory Rate 16 Blood Pressure 123/62 123/62 Pulse Oximetry 96 96 Oxygen Delivery Method Room Air 06/19/25 12:00 06/19/25 12:00 06/19/25 12:36 Temperature Pulse Rate 63 53 L Respiratory Rate 19 20 Blood Pressure 128/71 Pulse Oximetry 96 96 Oxygen Delivery Method Room Air 06/19/25 13:00 06/19/25 13:01 06/19/25 13:01 Temperature Pulse Rate 52 L 53 L Respiratory Rate 19 19 Blood Pressure 162/69 H Pulse Oximetry 95 96 Oxygen Delivery Method 06/19/25 13:30 06/19/25 13:31 06/19/25 13:31 Temperature Pulse Rate 49 L 52 L Respiratory Rate 15 24 Blood Pressure 140/65 Pulse Oximetry 96 95 Oxygen Delivery Method 06/19/25 14:00 06/19/25 14:00 06/19/25 14:30 Temperature Pulse Rate 48 L Respiratory Rate 17 Blood Pressure 145/65 H 167/71 H Pulse Oximetry 94 Oxygen Delivery Method 06/19/25 14:30 06/19/25 14:52 06/19/25 14:52 Temperature Pulse Rate 46 L 55 L Respiratory Rate 14 17 Blood Pressure 160/72 H Pulse Oximetry 96 96 Oxygen Delivery Method 06/19/25 15:00 06/19/25 15:00 06/19/25 15:30 Temperature Pulse Rate 47 L 50 L Respiratory Rate 15 15 Blood Pressure 129/50 L Pulse Oximetry 96 98 Oxygen Delivery Method 06/19/25 15:31 06/19/25 15:31 Temperature Pulse Rate 49 L Respiratory Rate 22 Blood Pressure 161/65 H Pulse Oximetry 98 Oxygen Delivery Method MDM - Dizziness Lab Data 06/19/25 12:04 06/19/25 12:04 Labs: Lab Results 06/19/25 06/19/25 Range/Units 12:04 14:15 WBC 7.7 (4.5-11.0) X10^3/uL RBC 4.24 L (4.5-5.9) X10^6/uL Hgb 13.5 (13.5-17.5) g/dL Hct 38.7 L (41-53) % MCV 91.4 (80-100) fL MCH 31.8 (26-34) PG MCHC 34.8 (30-36) % RDW 13.8 (11.6-14.8) % Plt Count 263 (150-400) X10^3/uL Neut % (Auto) 59.2 (50-75) % Lymph % (Auto) 30.3 (25-40) % Citrus % (Auto) 7.2 (3-14) % Eos % (Auto) 2.0 (2-4) % Baso % (Auto) 1.3 (0-2) % Neut # (Auto) 4500 (7906-7785) /uL Lymph # (Auto) 2300 (0052-2838) /uL Citrus # (Auto) 500 (0-900) /uL Eos # (Auto) 200 (0-450) /uL Baso # (Auto) 100 (0-100) /uL PT 11.7 (9.4-12.5) SECONDS INR 1.0 (0.9-1.3) APTT 32 (25.1-36.5) SECONDS Sodium 137 (137-145) mmol/L Potassium 4.0 (3.4-5.1) mmol/L Chloride 106 (98-107) mmol/L Carbon Dioxide 22 (22-32) mmol/L BUN 16 (9-20) mg/dL Creatinine 1.03 (0.66-1.25) mg/dL Estimated GFR > 60 (>60) mL/min BUN/Creatinine Ratio 15.5 (6-22) Glucose 135 H (70-99) mg/dL Calcium 9.1 (8.4-10.2) mg/dL Magnesium 2.0 (1.6-2.3) mg/dL Total Bilirubin 1.0 (0.2-1.3) mg/dL AST 49 (17-59) IU/L ALT 45 (<50) IU/L Alkaline Phosphatase 51 (38-126) U/L Total Creatine Kinase 99 (55-170) U/L Troponin I < 0.012 < 0.012 (0.01-0.034) ng/mL NT-Pro-B Natriuret Pep 229 (<450) pg/mL Total Protein 7.9 (6.3-8.2) g/dL Albumin 4.5 (3.5-5.0) g/dL Globulin 3.4 (1.7-4.1) g/dL Albumin/Globulin Ratio 1.3 (1.0-2.8) Lipase 124 (23-300) U/L ECG Data Attestation: I personally reviewed and interpreted this ECG as follows: Prior ECG tracings: available for review Interpretation: Sinus rhythm rate first-degree AV block of rate of 51 IN 230 QRS of 92 QTC of 403, no acute ST changes. Patient has prior from 06/01/2024 nonspecific change. MDM Narrative Medical decision making narrative: Labs show white count of 7.7 hemoglobin of 13 platelets of 263. Coags are negative, electrolytes BUN creatinine are appropriate glucose is 135, AST ALT, alk-phos and lipase are normal. Troponins less than 0.012 with a repeat of less than 0.012 and a BNP of 229. Sinus rhythm rate of 51, sinus bradycardia with a first-degree AV block Head CT shows no acute intracranial pathology Head and neck CTA shows no significant intracranial arterial abnormality, no significant abnormality with a in the arteries of the neck. NIH is 0. Patient has a brief episode of what sounds like vertigo upon awakening. Does not describe any area other acute neurologic changes currently did note some neck pain which prompted CT angio of the head and neck. Both negative NIH, total resolution of symptoms has not other acute neurologic changes felt appropriate for discharge home did discuss return precautions all questions answered. Patient felt comfortable with this plan. Discharge Plan Departure Patient Disposition: Home Clinical Impression: Vertigo Instructions: DI for Vertigo Activity Restrictions/Additional Instructions: Please follow up for recheck or if you have any additional episodes. Make sure you hydrate today. Please return for new or worsening symptoms, any difficulty with speech, facial droop, any difficulty with movement, ambulation or gait, new numbness tingling or weakness or any other new or concerning changes. Prescriptions: No Action omeprazole 20 mg capsule,delayed release(DR/EC) 20 mg PO DAILY simvastatin 20 mg tablet 10 mg PO DAILY Qty: 45 3RF Patient Comments: TK 1/ T PO QD IN THE EVENING fluocinolone 0.01 % cream 1 applic topical BID Qty: 15 0RF lisinopril 10 mg tablet 10 mg PO DAILY Qty: 90 3RF Patient Comments: TK / T PO QD tramadol 50 mg tablet 50 mg PO DAILY PRN (Reason: pain) Qty: 40 2RF doxazosin 8 mg tablet 8 mg PO DAILY Qty: 90 3RF Rx Instructions: Patient is still on this medication. Please fill as directed. Thanks! finasteride 5 mg tablet 5 mg PO DAILY Qty: 90 3RF gabapentin 300 mg capsule 300 mg PO TID Qty: 270 3RF psyllium husk [Daily Fiber] 0.4 gram capsule 0.4 g PO DAILY multivitamin Capsule 1 cap PO DAILY Referrals: Dutch Scott MD [Primary Care Provider, Internal Medicine] Stand Alone Forms: Patient Portal/API
== END 2025-06-19 15:45 | disposition home or self-care (01) ==
PROVIDERS: Emergency Provider Emergency Medicine; PCP Internal Medicine
DX: R42 Dizziness and giddiness (principal); M54.2 Cervicalgia; R07.9 Chest pain, unspecified
CPT/HCPCS: 36415; 70450; 70496; 70498; 71045; 80053; 82550; 83690; 83735; 83880; 84484; 85025; 85610; 85730; 93005; 93010; 99283; 99284; Q9967

== ENCOUNTER 2025-08-19 10:15 | Emergency (ER) | payer MEDICARE, SELFPAY ==
[2025-08-19 10:23] VITALS: BP 119/57; PULSE 61; RESP 14; TEMP 36.9; O2SAT 96; BMI 31.2
[2025-08-19 11:03] LABS: Strep Grp A by PCR Rapid Negative (Negative)
--- NOTE | 2025-08-19 11:14 | ED_ITS ---
HPI - URI/Sore Throat <Mckenna Bishop PA-C - Last Filed: 08/19/25 11:50> General Chief Complaint: Upper Respiratory Symptoms Stated Complaint: Sore throat , 3 weeks Time Seen by Provider: 08/19/25 11:00 Source: patient Mode of arrival: Ambulatory History of Present Illness HPI Narrative: Mr. Farfan is a very pleasant 85-year-old gentleman with a past medical history of HTN, HLD, neuropathy, BPH who presents to the emergency department forearm sore throat /left upper soft palate pain x3 weeks. Patient also reports that he has been having clear nasal drainage and postnasal drip for the last 3 weeks. He has also snoring more. Reports that at 1st he had some mild pain in the top left side of his mouth but it has been getting worse over the last few days. His has been telling him he has been snoring more. He has been having persistent / worsening postnasal drip and clear nasal drainage which is not completely new for him but is worse than normal. He denies any dental pain, facial pain, neck pain, difficulty swallowing or breathing but does report pain on the top left side of the mouth with swallowing. He has been drinking warm fluids to help, he has not taken any [id number] pain medications. He denies fevers or chills, he denies feeling sick or flu-like symptoms. He has not felt any masses in the mouth or the neck. He does not smoke cigarettes or use chewing tobacco. Related Data Home Medications ?Medication ?Instructions ?Recorded ?Confirmed omeprazole 20 mg capsule,delayed 20 mg PO DAILY 08/18/25 release multivitamin 1 cap PO DAILY 08/15/2007/31 psyllium husk 0.4 gram capsule 0.4 g PO DAILY 08/15/20 08/18/25 (Daily Fiber) Previous Rx's ?Medication ?Instructions ?Recorded fluocinolone 0.01 % topical cream 1 applic topical BID #15 grams 11/03/24 lisinopril 10 mg tablet 10 mg PO DAILY #90 tabs 10/30 05/23 gabapentin 300 mg capsule 300 mg PO TID #270 caps 10/31 04/22 tramadol 50 mg tablet 50 mg PO DAILY PRN pain #40 tabs 04/12/25 doxazosin 8 mg tablet 8 mg PO DAILY #90 tabs 05/31 finasteride 5 mg tablet 5 mg PO DAILY #90 tabs 06/13 simvastatin 20 mg tablet 10 mg (1/2 x 20 mg) PO DAILY #45 08/08/25 tabs amoxicillin 875 mg-potassium 1 tab PO Q12H 5 days #10 tabs 08/19/25 clavulanate 125 mg tablet lidocaine HCl 2 % mucosal solution 1 applic mucous mem brane DAILY PRN 08/19/25 (Lidocaine Viscous) pain #100 mL Allergies Allergy/AdvReac Type Severity Reaction Status Date / Time Sulfa (Sulfonamide Allergy Intermediate Rash Verified 08/19/25 10:25 Antibiotics) bee venom protein (honey bee) Allergy Mild Lymph Verified 08/19/25 10:25 swelling trimethoprim Allergy Verified 08/19/25 10:25 Review of Systems <Mckenna Bishop PA-C - Last Filed: 08/19/25 11:50> Review of Systems ROS Unobtainable: All systems reviewed & are unremarkable except as noted in HPI and below Patient History <Mckenna Bishop PA-C - Last Filed: 08/19/25 11:50> Medical History Lumbar degenerative disc disease Slow transit constipation Do not resuscitate Allergic rhinitis Erectile dysfunction Mixed hyperlipidemia Essential hypertension Measles (~1948) Chicken pox (~1949) Skin cancer Peripheral neuropathy (~1991) Mumps (~1949) GERD (gastroesophageal reflux disease) (~1985) BPH w urinary obs/LUTS Family history of prostate cancer Elevated PSA (~1983) Hyperlipidemia Surgical History Anesthesia History of colonoscopy (~2020) Hx of tonsillectomy (~1954) H/O vasectomy H/O circumcision Family History Father Cancer Mother CAD (coronary artery disease) Grandmother Diabetes mellitus Sister Cancer Grandfather Diabetes mellitus Grandfather No problems noted. 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 Well-developed patient, in no acute distress. HEAD: Atraumatic. Normocephalic. EYES: PERRL. Extraocular motions intact. No scleral icterus. No injection or drainage. ENT: No mastoid tenderness bilaterally.Nose without bleeding, purulent drainage. Posterior oropharynx is clear and uvula is midline, tonsils are surgically absent. Patient identifies source of pain on the top left soft palate, there is no palpable mass or reproducible tenderness. There is very faint erythema in the posterior oropharynx. No tenderness to palpation of the dentition, floor of the mouth or the tongue. NECK: Trachea midline. Cervical ROM intact. No palpable lymphadenopathy or neck masses, no tenderness to palpation of the thyroid or anterior neck. CARDIOVASCULAR: Regular rate RESPIRATORY: Nonlabored respirations. Speaking in clear, full sentences. NEURO: AOx3. Clear speech. Moves all 4 extremities appropriately. SKIN: No rash or erythema of visible areas Initial Vital Signs Initial Vital Signs: Vital Signs Temperature 98.5 F 08/19/25 10:23 Pulse Rate 61 08/19/25 10:23 Respiratory Rate 14 08/19/25 10:23 Blood Pressure 119/57 L 08/19/25 10:23 Pulse Oximetry 96 08/19/25 10:23 Oxygen Delivery Method Room Air 08/19/25 10:23 <Amarjit Briones MD - Last Filed: 08/20/25 07:19> Initial Vital Signs Initial Vital Signs: Vital Signs Temperature 98.5 F 08/19/25 10:23 Pulse Rate 61 08/19/25 10:23 Respiratory Rate 14 08/19/25 10:23 Blood Pressure 119/57 L 08/19/25 10:23 Pulse Oximetry 96 08/19/25 10:23 Oxygen Delivery Method Room Air 08/19/25 10:23 Course <Mckenna Bishop PA-C - Last Filed: 08/19/25 11:50> Orders Ordered: Discontinued Medications Lidocaine HCl (Lidocaine Viscous 2% 15 Ml Solution) 15 ml PO NOW ONE Stop: 08/19/25 11:14 Last Admin: 08/19/25 11:31 Dose: 15 ml Documented By: CTS Vital Signs Vital signs: Vital Signs - 8 hr 08/19/25 10:23 Temperature 98.5 F Pulse Rate 61 Respiratory Rate 14 Blood Pressure 119/57 L Pulse Oximetry 96 Oxygen Delivery Method Room Air <Amarjit Briones MD - Last Filed: 08/20/25 07:19> Orders Ordered: Discontinued Medications Lidocaine HCl (Lidocaine Viscous 2% 15 Ml Solution) 15 ml PO NOW ONE Stop: 08/19/25 11:14 Last Admin: 08/19/25 11:31 Dose: 15 ml Documented By: CTS Vital Signs Vital signs: Vital Signs - 8 hr 08/19/25 10:23 Temperature 98.5 F Pulse Rate 61 Respiratory Rate 14 Blood Pressure 119/57 L Pulse Oximetry 96 Oxygen Delivery Method Room Air MDM - URI/Sore Throat <Mckenna Bishop PA-C - Last Filed: 08/19/25 11:50> Medical Records Attestation: I reviewed the patient's medical records. Lab Data Labs: Lab Results 08/19/25 Range/Units 10:28 Group A Strep (PCR) Negative (Negative) MDM Narrative Medical decision making narrative: 85-year-old gentleman with a past medical history of HTN, HLD, neuropathy, BPH who presents to the emergency department forearm sore throat /left upper soft palate pain x3 weeks. Differential diagnosis includes but is not limited to pharyngitis, sinusitis, sleep apnea, sinus mass, dental infection, etc. On exam the patient is in no acute distress, nontoxic-appearing, all vital signs within normal limits. His posterior oropharynx is clear, uvula is midline and he is tolerating his secretions without difficulty, no difficulty tolerating p.o. speaking or breathing. He has focal area of discomfort with swallowing in the top left soft palate, with no palpable mass. No dental tenderness neck tenderness or lymphadenopathy. No flu-like symptoms or fevers. Given patient has progressively worsening pain and persistent nasal drainage and postnasal drip, we will treat as potential sinusitis with Augmentin b.i.d. x5 days, intranasal Flonase, viscous lidocaine gargle, Tylenol PRN. However advised patient to follow up promptly with ENT for further management and advised he return to the ER for any new or worsening symptoms, fevers, masses, difficulty swallowing or other concerns. Trialed viscous lidocaine in the ED. Patient verbalized understanding of all information and is happy with this plan, antibiotics sent to pharmacy of choice, he is stable for discharge home. <Amarjit Briones MD - Last Filed: 08/20/25 07:19> Lab Data Labs: Lab Results 08/19/25 Range/Units 10:28 Group A Strep (PCR) Negative (Negative) Discharge Plan Departure Patient Disposition: Home Clinical Impression: Sinusitis, acute Qualifiers: Sinusitis location: unspecified location Recurrence: non-recurrent Qualified Code(s): J01.90 - Acute sinusitis, unspecified Instructions: DI for Sinusitis Activity Restrictions/Additional Instructions: Dear Mr. Farfan, Thank you for coming to the emergency department. Today you were evaluated for pain in the roof of your mouth and runny nose for multiple weeks. Your strep throat swab was negative. At this time I believe your symptoms could be related to a sinus infection and I would like you to complete the full course of prescribed antibiotics. I would also like you to use [id number] intranasal Flonase and Tylenol to help with the pain. You may also swish and spit out the prescribed lidocaine to help with the pain. Please drink warm tea with honey as well. I would like you to follow up with an ears Nose Throat specialist for further evaluation. Please return to the emergency department if you develop fevers, difficulty swallowing or breathing, mass in the mouth or neck or any other concerns. Please follow up with your primary care doctor within the next 2-3 days for ER follow-up. (If you do not have a PCP you can call [phone]. ?to schedule an appointment with an [facility] Primary Care Provider) IF YOU DEVELOP ANY NEW OR WORSENING SYMPTOMS, RETURN TO THE ER! Please read the attached instructions, they highlight more specific treatments and interventions for you at home. Thank you for letting me participate in your care, Mckenna Bishop PA-C Prescriptions: New amoxicillin-pot clavulanate 875-125 mg tablet 1 tab PO Q12H 5 Days Qty: 10 0RF lidocaine HCl [Lidocaine Viscous] 2 % solution 1 applic mucous membrane DAILY PRN (Reason: pain) Qty: 100 0RF Rx Instructions: Swish/gargle and spit out. No Action omeprazole 20 mg capsule,delayed release(DR/EC) 20 mg PO DAILY fluocinolone 0.01 % cream 1 applic topical BID Qty: 15 0RF lisinopril 10 mg tablet 10 mg PO DAILY Qty: 90 3RF Patient Comments: TK / T PO QD tramadol 50 mg tablet 50 mg PO DAILY PRN (Reason: pain) Qty: 40 2RF doxazosin 8 mg tablet 8 mg PO DAILY Qty: 90 3RF Rx Instructions: Patient is still on this medication. Please fill as directed. Thanks! finasteride 5 mg tablet 5 mg PO DAILY Qty: 90 3RF simvastatin 20 mg tablet 10 mg PO DAILY Qty: 45 3RF Patient Comments: TK 09/30 T PO QD IN THE EVENING gabapentin 300 mg capsule 300 mg PO TID Qty: 270 3RF psyllium husk [Daily Fiber] 0.4 gram capsule 0.4 g PO DAILY multivitamin Capsule 1 cap PO DAILY Referrals: Jhonatan Cabrales MD [Physician, Ear, Nose, Throat] Dutch Scott MD [Primary Care Provider, Internal Medicine] Stand Alone Forms: Patient Portal/API ED Sign-out <Amarjit Briones MD - Last Filed: 08/20/25 07:19> [facility] Att[facility]: I was available for consultation during this patient's emergency department visit. This chart is signed by myself for administrative purposes only. I did not have direct contact with this patient during this visit. They were seen independently by the APC.
[2025-08-19] MEDS: LIDOCAINE VISCOUS 2% 15 ML SOLUTION PO (11:31)
== END 2025-08-19 11:33 | disposition home or self-care (01) ==
PROVIDERS: Emergency Medicine; Emergency Provider Physician Assistant; PCP Internal Medicine
DX: J01.90 Acute sinusitis, unspecified (principal)
CPT/HCPCS: 87651; 99283

== ENCOUNTER → 2025-09-06 10:50 | Outpatient (CLI) | payer MEDICARE, SELFPAY ==
[2025-09-06 11:51] LABS: Hematocrit 39.1 % (41-53); Hemoglobin 13.3 g/dL (13.5-17.5); Mean Corpuscular HGB Conc 34.1 % (30-36); Mean Corpuscular Hemoglobin 31.4 PG (26-34); Mean Corpuscular Volume 92.1 fL (80-100); Platelet Count 399 X10^3/uL (150-400)
[2025-09-06 12:13] LABS: Alanine Aminotransferase 30 IU/L (<50); Albumin 4.0 g/dL (3.5-5.0); Albumin Globulin Ratio 1.3 (1.0-2.8); Alkaline Phosphatase 56 U/L (38-126); Blood Urea Nitrogen 16 mg/dL (9-20); Calcium 9.0 mg/dL (8.4-10.2); Carbon Dioxide 23 mmol/L (22-32); Chloride 106 mmol/L (98-107); Estimated Glomerular Filt Rate > 60 mL/min (>60); Globulin 3.1 g/dL (1.7-4.1); Glucose 108 mg/dL (70-99); HEMOLYSIS < 15 (0-50); Potassium 4.2 mmol/L (3.4-5.1); Sodium 140 mmol/L (137-145); Total Protein 7.1 g/dL (6.3-8.2)
== END ==
PROVIDERS: PCP Internal Medicine; Referring Provider Internal Medicine; Visit Provider Internal Medicine
DX: R19.7 Diarrhea, unspecified (principal)
CPT/HCPCS: 36415; 80053; 85027; 87493